=== PATIENT | male | born 1955 | race Caucasian/White ===

== ENCOUNTER 2020-05-31 14:05 | Outpatient (REF) | payer OTHER, SELFPAY | END 2020-05-31 14:06 | disposition home or self-care (01) | LOC: HO.LAB 14:05 | PROVIDERS: PCP Internal Medicine; Visit Provider Internal Medicine | DX: Z20.828 Contact with and (suspected) exposure to other viral communicable diseases (principal) | CPT/HCPCS: C9803; U0003 ==

== ENCOUNTER 2020-12-06 06:36 | Emergency (ER) | payer OTHER, SELFPAY ==
--- NOTE | ~2020-12-06 | XR_ITS ---
EXAMINATION: XR SHOULDER, RIGHT CLINICAL INFORMATION: Pain COMPARISON: None TECHNIQUE: AP external rotation, Grashey, scapular Y, and axillary views of the right shoulder. FINDINGS: Bones have normal alignment. No fracture or subluxation. The acromion process has curved, type 2 configuration. Small osteophytes project from the inferior aspect of the mildly degenerated acromioclavicular joint. The humeral head is well-positioned over the intact glenoid. There are osteophytes at the inferior aspect of the degenerated glenohumeral joint. Note that is difficult to exclude any osteochondral body or calcium hydroxyapatite deposition in the region of the proximal bicipital groove. XR/XR shoulder RT min 2V IMPRESSION: * No acute abnormalities. No fracture or subluxation at the shoulder. * Mild osteoarthritis of the acromioclavicular joint. * [id number] osteoarthritis of the glenohumeral joint.
[2020-12-06 07:17] VITALS: BP 141/83; PULSE 51; RESP 16; O2SAT 98; BMI 35.9
--- NOTE | 2020-12-06 07:45 | ED_ITS ---
HPI - Extremity Problem General Chief complaint: Extremity Injury, Upper Stated complaint: extreme pain in right arm, from elbow up Time Seen by Provider: 12/06/20 07:35 Source: patient and interpreter for the deaf Mode of arrival: ambulatory Limitations: no limitations History of Present Illness HPI Narrative: 65 yo male with HTN here with atraumatic R shoulder pain x 2 days radiating down R arm, no prior injuries. MD Complaint: extremity pain Onset (ago): day(s) (2) Pain Consistency: constant Location: right and upper extremity Quality: burning Radiation: distal Relieving factors: nothing Exacerbating factors: range of motion and palpation Associated symptoms: denies other symptoms Related Data Previous Rx's Medication Instructions Recorded cyclobenzaprine 10 mg PO TID PRN #14 tab 12/06/20 ibuprofen 600 mg PO Q6H PRN #30 tab 12/06/20 lidocaine 1 patch TOPICAL DAILY PRN #10 ea 12/06/20 Allergies Allergy/AdvReac Type Severity Reaction Status Date / Time No Known Allergies Allergy Mild NKA Unverified 03/09/20 16:12 Review of Systems Review of Systems: Constitutional : No Fever, No Chills ENT/Mouth : No Ear Pain, No Hoarseness, No sore throat Eyes: No Eye Pain, No Swelling, No Redness, No Foreign Body Cardiovascular : No Chest Pain, No SOB Respiratory : No Cough, No Dyspnea Gastrointestinal : No Nausea, No Vomiting, No Diarrhea, No abdominal Pain Genitourinary : No Dysuria, No Hematuria Musculoskeletal : positive joint pain, pos Myalgias, No Joint Swelling Skin : No Skin lacerations, No rash Neuro : No Weakness, No Numbness, No Loss of Consciousness, No Dizziness, No Headache PMFSH Past Medical History Attestation statement: The following information was validated with the patient. Medical History Hypercholesteremia Hypertension Surgical History History of cholecystectomy Social History Social History (Updated 12/06/20 @ 08:00 by Keysha Roman DO) Patient Tobacco Use Status: Never used Tobacco Use of substances other than those prescribed or required for medical reasons: No Advance Directives: No Advance Directives Information Provided: No Physical Exam Vital Signs: Vital Signs: Last Vital Signs Temp 98.1 F 12/06/20 08:25 Pulse 56 12/06/20 08:25 Resp 16 12/06/20 08:25 BP 144/89 H 12/06/20 08:25 Pulse Ox 96 12/06/20 08:25 Body Mass Index 35.9 Appearance: Alert. Oriented X3. No acute distress. Eyes: Pupils equal, round and reactive to light. ENT: Pharynx normal. Neck: Normal inspection. Neck supple. CVS: Normal heart rate and rhythm. Pulses normal. Respiratory: No respiratory distress. Breath sounds normal. Abdomen: Soft and nontender. Skin: Skin warm and dry. Normal skin color. Normal skin turgor. Extremities: No lower extremity edema. R shoulder ttp along AC joint, distal NV intact, no deformity redness/swelling/warmth noted Neuro: Oriented X 3. No motor deficit. No sensory deficit. Procedures Orthopedic Splinting/Casting Injury #1: Side: right Upper Extremity Injury Location: shoulder Upper Extremity Immobilizer: sling/shoulder immobilizer MDM - Extremity (Nontraumatic) MDM Narrative Medical decision making narrative: 65 yo male with HTN here with atraumatic R shoulder pain x 2 days radiating down R arm, no prior injuries at this time given no trauma, no signs of infection< NV intact likely tendonitis, xray sling and toradol ordered, no CP/SOB Discharge Plan Discharge Clinical Impression: Right shoulder tendinitis Patient Disposition: Home, Self-Care Instructions: Tendinitis (ED) Additional Instructions: SLING FOR ESTELLA RANDALL * No acute abnormalities. No fracture or subluxation at the shoulder. * Mild osteoarthritis of the acromioclavicular joint. * [id number] osteoarthritis of the glenohumeral joint. Prescriptions: New cyclobenzaprine 10 mg tablet 10 mg PO TID PRN (Reason: muscle spasm) Qty: 14 RF: 0 lidocaine 4 % adhesive patch,medicated 1 patch topical DAILY PRN (Reason: pain) Qty: 10 RF: 0 ibuprofen 600 mg tablet 600 mg PO Q6H PRN (Reason: pain) Qty: 30 RF: 0 Referrals: Angela Zamudio MD [Primary Care Provider] - 2 days (if not better) Print Language: Citizen Of [place]
[2020-12-06] MEDS: Ketorolac Tromethamine 60 MG/2 ML VIAL IM (07:59)
[2020-12-06 08:25] VITALS: BP 144/89; PULSE 56; RESP 16; TEMP 36.7; O2SAT 96
== END 2020-12-06 09:21 | disposition home or self-care (01) ==
PROVIDERS: Emergency Provider Emergency Medicine; PCP Internal Medicine
DX: M77.8 Other enthesopathies, not elsewhere classified (principal); I10 Essential (primary) hypertension
CPT/HCPCS: 73030; 96372; 99284; J1885

== ENCOUNTER 2020-12-08 02:54 | Emergency (ER) | payer OTHER, SELFPAY ==
[2020-12-08 03:04] VITALS: BP 159/91; PULSE 69; RESP 18; TEMP 36.1; O2SAT 97; BMI 21.5
--- NOTE | 2020-12-08 03:51 | ED_ITS ---
HPI - Extremity Problem General Chief complaint: Extremity Injury, Upper Stated complaint: right shoulder/arm pain Time Seen by Provider: 12/08/20 03:51 Source: patient Mode of arrival: ambulatory History of Present Illness HPI Narrative: This is a 65-year-old male who presents with persistent right shoulder pain that started approximately 4 days ago upon awakening from sleep. This is not been associated with any fevers, chills, distal extremity numbness/tingling/weakness. On further questioning patient endorses that he did move his furniture approximately 10 days ago which involved couch is and larger pieces. Related Data Previous Rx's Medication Instructions Recorded cyclobenzaprine 10 mg PO TID PRN #14 tab 12/06/20 ibuprofen 600 mg PO Q6H PRN #30 tab 12/06/20 lidocaine 1 patch TOPICAL DAILY PRN #10 ea 12/06/20 ketorolac 10 mg PO Q6H PRN 5 Days #20 tab 12/08/20 Allergies Allergy/AdvReac Type Severity Reaction Status Date / Time No Known Allergies Allergy Mild NKA Unverified 03/09/20 16:12 Review of Systems Review of Systems: Pertinent positives and negatives as stated in HPI 10 point review of systems is otherwise negative. PMFSH Past Medical History Source: nursing notes reviewed Medical History Hypercholesteremia Hypertension Surgical History History of cholecystectomy Social History Social History Patient Tobacco Use Status: Never used Tobacco Advance Directives: No Advance Directives Information Provided: No Physical Exam Vital Signs: Vital Signs: Last Vital Signs Temp 97.0 F 12/08/20 03:04 Pulse 69 12/08/20 03:04 Resp 18 12/08/20 03:04 BP 159/91 H 12/08/20 03:04 Pulse Ox 97 12/08/20 03:04 Body Mass Index 21.5 VITAL SIGNS: Reviewed. GENERAL: Well developed, well nourished, in no acute distress. HEAD: Normocephalic/atraumatic EYES: PERRLA, EOMI EARS: Ext canals without abnormality NOSE: Nares patent bilateral OROPHARYNX: no oral lesions noted, posterior pharynx clear NECK: Supple, no adenopathy LUNGS: Normal breath sounds. No adventitious sounds or accessory muscle use. SpO2<97> CARDIOVASCULAR: Regular rate and rhythm without noted murmurs ABDOMEN: Soft, non-tender, non-distended with bowel sounds. RUE: Range of motion was limited by pain in extension, flexion, ABduction, capillary refill less than 3 seconds, sensation intact, NEUROLOGIC: Alert and oriented x 4. Course Course Course Narrative: 65-year-old male with history and clinical presentation consistent suggestive of possible rotator cuff injury, patient was provided with additional combination analgesics and on re-evaluation is noted to be resting comfortably. Patient will be provided with a referral to Orthopedics for further re-evaluation. Discharge Plan Discharge Clinical Impression: Pain in right shoulder Patient Disposition: Home, Self-Care Instructions: Shoulder Pain (ED) Additional Instructions: 1. Tylenol 1000 mg, por v?a oral, cada 6 horas seg?n sea necesario para controlar el dolor. No exceda los 4000 mg en 24 horas. 2. DEJE de cherelle ibuprofeno. 3. Contin?e usando los parches de lidoca?na y el cabestrillo que le proporcion?. 4. Kala un seguimiento con parsons proveedor de atenci?n primaria en los pr?ximos 1-2 d?as para paco reevaluaci?n. 5. Se le castellanos remitido a [employer]. [place] se encuentra a continuaci?n. Regrese a la mendel de emergencias por cualquier empeoramiento jeramie de kika s?ntomas. Prescriptions: New ketorolac 10 mg tablet 10 mg PO Q6H PRN (Reason: pain) 5 Days Qty: 20 RF: 0 No Action cyclobenzaprine 10 mg tablet 10 mg PO TID PRN (Reason: muscle spasm) Qty: 14 RF: 0 lidocaine 4 % adhesive patch,medicated 1 patch topical DAILY PRN (Reason: pain) Qty: 10 RF: 0 ibuprofen 600 mg tablet 600 mg PO Q6H PRN (Reason: pain) Qty: 30 RF: 0 Referrals: Issac Jackson MD [Physician] - 2 days (Evaluation and treatment as indicated for possible rotator cuff tear versus tendinitis.)
[2020-12-08] MEDS: Acetaminophen 325 MG TABLET 975 MG PO (04:36)
[2020-12-08] MEDS: Ketorolac Tromethamine 15 MG/ML VIAL IM (04:36)
== END 2020-12-08 06:06 | disposition home or self-care (01) ==
PROVIDERS: Emergency Provider Student in an Organized Health Care Education/Training Program
DX: M25.511 Pain in right shoulder (principal); I10 Essential (primary) hypertension
CPT/HCPCS: 96372; 99283; 99284; J1885

== ENCOUNTER 2021-04-06 10:53 | Outpatient (REF) | payer OTHER, SELFPAY ==
[2021-04-06 11:23] LABS: COVID-19 Test Negative (Negative)
== END 2021-04-06 10:54 | disposition home or self-care (01) ==
LOC: HO.LAB 10:53
PROVIDERS: PCP Internal Medicine; Visit Provider Internal Medicine
DX: Z20.822 Contact with and (suspected) exposure to COVID-19 (principal)
CPT/HCPCS: 36415; 87635; C9803

== ENCOUNTER 2021-05-19 19:27 | Emergency (ER) | payer OTHER, SELFPAY ==
[2021-05-19 20:03] LABS: COVID-19 Test Negative (Negative)
[2021-05-19 20:21] VITALS: BP 140/72; PULSE 59; RESP 15; TEMP 36.6; O2SAT 96; BMI 34.8
--- NOTE | 2021-05-19 22:02 | ED.GENADULT ---
HPI - General Adult General Chief complaint: General Medical Stated complaint: body achesrunny nose Time Seen by Provider: 05/19/21 22:02 Source: patient Mode of arrival: ambulatory Limitations: no limitations History of Present Illness HPI narrative: Patient has significant lung issues in the past been coughing for last 3 days fully vaccinated against COVID-19 no other family members sick had low-grade fever body aches dry cough mostly Related Data Previous Rx's Medication Instructions Recorded ibuprofen 600 mg tablet 600 mg PO Q6H PRN #30 tab 12/06/20 lidocaine 4 % topical patch 1 patch TOPICAL DAILY PRN #10 ea 12/06/20 ketorolac 10 mg tablet 10 mg PO Q6H PRN 5 Days #20 tab 12/08/20 azithromycin 250 mg tablet 250 mg PO DAILY 4 Days #4 tab 05/19/21 (Zithromax Z-Beto) codeine 10 mg-guaifenesin 100 mg/5 10 ml PO Q4-6H PRN #237 ml 05/19/21 mL oral liquid Allergies Allergy/AdvReac Type Severity Reaction Status Date / Time No Known Allergies Allergy Mild NKA Verified 05/19/21 20:27 Review of Systems Review of Systems: Yes all other systems are reviewed and are negative PMFSH Past Medical History Medical History Hypercholesteremia Hypertension Surgical History History of cholecystectomy Social History Social History Patient Tobacco Use Status: Never used Tobacco Advance Directives: No Physical Exam Vital Signs: Vital Signs: Last Vital Signs Temp 97.9 F 05/19/21 20:21 Pulse 59 05/19/21 20:21 Resp 15 05/19/21 20:21 BP 140/72 H 05/19/21 20:21 Pulse Ox 96 05/19/21 20:21 Body Mass Index 34.8 Appearance: Alert. Oriented X3. No acute distress. ENT: Pharynx normal. Oral Mucosa moist Neck: Normal inspection. Neck supple. CVS: Normal heart rate and rhythm. Pulses normal. Respiratory: No respiratory distress. Equal air entry bilateral, no wheezing/rales/rhonchi Abdomen: Soft and nontender. Bowel sounds are present, Skin: Skin warm and dry. Normal skin color. Normal skin turgor. Extremities: No lower extremity edema. No calf tenderness Neuro: Oriented X 3. Medical Decision Making Lab Data Lab results reviewed: Yes I reviewed the patient's lab results. Labs: Lab Results 05/19/21 Range/Units 19:45 COVID-19 ([facility]) Negative (Negative) COVID-19 Clin Com See Note Discharge Plan Discharge Clinical Impression: Acute bronchitis Qualifiers: Bronchitis organism: unspecified organism Qualified Code(s): J20.9 - Acute bronchitis, unspecified Patient Disposition: Home, Self-Care Instructions: Acute Bronchitis (ED) Additional Instructions: Drink plenty of fluids Take antibiotics and cough drops as prescribed Follow with PCP if not better Prescriptions: New azithromycin [Zithromax Z-Beto] 250 mg tablet 250 mg PO DAILY 4 Days Qty: 4 RF: 0 codeine-guaifenesin 10-100 mg/5 mL liquid 10 ml PO Q4-6H PRN (Reason: cough) Qty: 237 RF: 0 Discontinued cyclobenzaprine 10 mg tablet 10 mg PO TID PRN (Reason: muscle spasm) Qty: 14 RF: 0 No Action lidocaine 4 % adhesive patch,medicated 1 patch topical DAILY PRN (Reason: pain) Qty: 10 RF: 0 ibuprofen 600 mg tablet 600 mg PO Q6H PRN (Reason: pain) Qty: 30 RF: 0 ketorolac 10 mg tablet 10 mg PO Q6H PRN (Reason: pain) 5 Days Qty: 20 RF: 0 Interventions: ED Discharge Assessment Last Done: 05/19/21 22:20 Discharge Date/Time: 05/19/21 22:20
[2021-05-19] MEDS: Azithromycin 500 MG TABLET PO (22:17)
[2021-05-19] MEDS: Benzonatate 100 MG CAPSULE 200 MG PO (22:17)
== END 2021-05-19 22:20 | disposition home or self-care (01) ==
PROVIDERS: Emergency Provider Internal Medicine; PCP Student in an Organized Health Care Education/Training Program
DX: J20.9 Acute bronchitis, unspecified (principal); I10 Essential (primary) hypertension; Z20.822 Contact with and (suspected) exposure to COVID-19
CPT/HCPCS: 36415; 87635; 99283

== ENCOUNTER 2021-06-29 13:44 | Outpatient (REF) | payer OTHER, SELFPAY ==
[2021-06-29 14:52] LABS: Binax Internal Control QC Valid; Binax Now Covid-19 Ag Negative (Negative)
== END 2021-06-29 13:45 | disposition home or self-care (01) ==
LOC: HO.LAB 13:44
PROVIDERS: Visit Provider Internal Medicine
DX: Z20.822 Contact with and (suspected) exposure to COVID-19 (principal)
CPT/HCPCS: 36415; C9803

== ENCOUNTER → 2021-12-03 12:52 | Outpatient (REF) | payer OTHER, SELFPAY ==
--- NOTE | 2021-12-03 12:56 | ECG_ITS ---
Hook-up date: 2021-12-03 12:08:00 Duration: 23:56:00 Test Indications: PALPITATIONS Medications: 85893 QRS complexes 301 Ventricular ectopics which represent <1 % of total QRS comp. 27 Supraventricular ectopics which represent <1 % of total QRS comp. * Paced QRS complexs which represent % of total QRS comp. VENTRICULAR ECTOPY 299 Isolated 131 Bigeminal Cycles 1 Couplets 0 Runs 0 Beats in Runs * Beats LONGEST at * BPM at :: -- * Beats FASTEST at * BPM at :: -- SUPRAVENTRICULAR ECTOPY 20 Isolated 2 Couplets 1 Runs 3 Beats in Runs 3 Beats LONGEST at 92 BPM at 02:10:57 2021-12-04 3 Beats FASTEST at 92 BPM at 02:10:57 2021-12-04 HEART RATES 34 MIN at 06:40:44 2021-12-04 55 AVG 96 MAX at 16:27:25 2021-12-03 LONGEST RR 2.0480 secs at 13:59:28 2021-12-03 S-T LEVELS Channel 1 - 128 mm at 12:08:00 2021-12-03 - 128 mm at 12:08:00 2021-12-03 Channel 2 - 128 mm at 12:08:00 2021-12-03 - 128 mm at 12:08:00 2021-12-03 Channel 3 - 128 mm at 03:12:71 -- - 128 mm at 03:12:71 Basic rhythm Normal sinus rhythm Frequent Sinus bradycardia , 65% of time HR < 60 bpm No pauses greater than 3 seconds. Occasional Premature ventricular complexes Rare Premature atrial complexes Patient did not report any symptoms in the diary Referred By: Angela Zamudio Overread By: DAVON COHEN MD
== END ==
LOC: HO.CARD 12:52
PROVIDERS: Visit Provider Internal Medicine
DX: R00.2 Palpitations (principal)
CPT/HCPCS: 93225; 93226

== ENCOUNTER 2022-01-07 14:29 | Outpatient (REF) | payer OTHER, SELFPAY ==
[2022-01-07 14:57] LABS: COVID-19 Test Negative (Negative)
== END 2022-01-07 14:30 | disposition home or self-care (01) ==
LOC: HO.LAB 14:29
PROVIDERS: Visit Provider Internal Medicine
DX: Z20.822 Contact with and (suspected) exposure to COVID-19 (principal)
CPT/HCPCS: 87635; C9803

== ENCOUNTER → 2022-04-02 14:46 | Outpatient (BNVA) | payer OTHER, SELFPAY | PROVIDERS: PCP Internal Medicine; Referring Provider Internal Medicine; Visit Provider Nurse Practitioner Family | DX: Z12.11 Encounter for screening for malignant neoplasm of colon (principal) | CPT/HCPCS: 99202 ==

== ENCOUNTER 2022-05-20 09:56 | Emergency (ER) | payer OTHER, SELFPAY | END 2022-05-20 11:13 | disposition left against medical advice (07) | PROVIDERS: Emergency Provider Emergency Medicine; PCP Internal Medicine | DX: M54.2 Cervicalgia (principal) ==

== ENCOUNTER 2022-10-16 10:47 | Outpatient (REF) | payer OTHER, SELFPAY ==
--- NOTE | ~2022-10-16 | XR_ITS ---
EXAMINATION: XR CHEST CLINICAL INFORMATION: Dyspnea on exertion. COMPARISON: Chest 07/18/2017. TECHNIQUE: 2 views of the chest were obtained. FINDINGS: The lungs are fairly well expanded and clear. The heart size and pulmonary vascularity is normal. No gross bony abnormality seen. There is moderate dorsal spine spondylosis. XR/XR chest 2V IMPRESSION: Unremarkable chest exam.
== END 2022-10-16 10:48 | disposition home or self-care (01) ==
LOC: HO.XRAY 10:47
PROVIDERS: PCP Internal Medicine; Visit Provider Internal Medicine
DX: R06.09 Other forms of dyspnea (principal)
CPT/HCPCS: 71046

== ENCOUNTER 2023-08-10 10:27 | Emergency (ER) | payer OTHER, SELFPAY ==
--- NOTE | ~2023-08-10 | XR_ITS ---
EXAMINATION: XR chest 1V CLINICAL INFORMATION: Reason for Exam cough COMPARISON: Cough TECHNIQUE: Single portable frontal view. Tubes and lines: None Lungs and pleura: Both lungs are clear. Heart and mediastinum: The mediastinum is within normal limits.. Bones/soft tissue: Skeletal structures included are normal for patient's age. XR/XR chest 1V IMPRESSION: No radiographic evidence of acute cardiopulmonary disease.
--- NOTE | ~2023-08-10 | XR_ITS ---
EXAMINATION: XR HAND, RIGHT CLINICAL INFORMATION: Injury COMPARISON: None available. TECHNIQUE: PA, lateral, and oblique views of the right hand. FINDINGS: Notable soft tissue swelling second digit. There is a high density metallic foreign body within the soft tissues measuring up to 4 x 1 mm ulnar aspect about the proximal phalanx. No underlying fracture. Joint spaces preserved. XR/XR hand RT 2V IMPRESSION: Soft tissue injury as above with metallic foreign body as above. No underlying fracture.
[2023-08-10 10:43] VITALS: BP 157/75; PULSE 55; RESP 16; TEMP 36.4; O2SAT 98; BMI 36.9
[2023-08-10 11:04] LABS: MANUAL DIFF FLAG NO
[2023-08-10 11:06] LABS: Basophils Percent Auto 0.2 % (0-2); Eosinophils Absolute Auto 0.1 X10*3/uL (0.0-0.4); Hematocrit 41.6 % (42.0-52.0); Hemoglobin 13.9 g/dl (14.0-18.0); Imm Gran Abs Auto 0.02 X10*3/uL (0.00-0.03); Imm Gran Pct Auto 0.4 % (0.0-0.4); Lymphocytes Absolute Auto 2.4 X10*3/uL (1.2-4.9); Lymphocytes Percent Auto 52.4 % (20-40); Mean Corpuscular HGB Conc 33.4 g/dl (31.0-36.0); Mean Corpuscular Hemoglobin 28.5 pg (27.0-33.0); Mean Corpuscular Volume 85.4 fL (80.0-98.0); Mean Platelet Volume 9.7 fL (9.4-12.4); Monocytes Absolute Auto 0.5 X10*3/uL (0.1-1.2); Monocytes Percent Auto 11.1 % (2-11); Neutrophils Absolute Auto 1.5 x10*3/uL (2.0-8.3); Neutrophils Percent Auto 32.9 % (45-73); Platelet Count 175 X10*3/uL (160-400); Red Blood Count 4.87 X10*6/uL (4.60-5.80); Red Cell Distribution Width 12.5 % (11.0-16.0); White Blood Count 4.6 X10*3/uL (4.8-10.8)
[2023-08-10 11:25] LABS: Alanine Aminotransferase 20 U/L (0-40); Albumin Level 4.1 g/dL (3.5-5.0); Alkaline Phosphatase 51 U/L (39-117); Anion Gap 11 (12-20); Aspartate Amino Transferase 19 U/L (5-37); Bilirubin Direct 0.2 mg/dL (0.0-0.5); Bilirubin Total 0.3 mg/dL (0.0-1.0); Blood Urea Nitrogen 17 mg/dL (9-16); Calcium 9.4 mg/dL (8.4-10.2); Carbon Dioxide 26 mmol/L (22-29); Chloride 108 mmol/L (96-108); Creatinine Clr Calc Pharmacy 88.4; Estimated Glomerular Filt Rate > 60; Glucose Random 106 mg/dL (60-115); Potassium 4.2 mmol/L (3.3-5.1); Sodium 141 mmol/L (135-145); Total Protein 7.9 g/dL (6.5-8.0)
[2023-08-10 11:43] LABS: Influenza A PCR NEGATIVE (Negative); Influenza B PCR NEGATIVE (Negative); Resp Syncy Virus RNA Qual PCR NEGATIVE (Negative); SARS COV2 PCR INHOUSE NEGATIVE (Negative)
--- NOTE | 2023-08-10 12:01 | ED_ITS ---
HPI - Fever General Chief Complaint: Fever Stated Complaint: Fever Time Seen by Provider: 08/10/23 11:26 Source: patient Mode of arrival: ambulatory Limitations: no limitations History of Present Illness HPI Narrative: 68 yo male with history of HLD, BPH, HTN here with complaints of 3 days of subjective fevers, chills, congestion, cough. Initially had vomiting x 24 hrs which is now resolved. No diarrhea, abdominal pain, skin rash, chest pain, shortness of breath, urinary symptoms, headache, neck or back pain. NO sick contact or recent travel. Also concerned that he had an injury to his right index finger several days ago. Reports he smashed his finger with a metal pipe. Had a small abrasion initially. Now its painful, swollen and bruised. Related Data Home Medications Medication Instructions Recorded Confirmed simvastatin 40 mg tablet 40 mg PO BEDTIME 04/02/22 08/01/22 tamsulosin 0.4 mg capsule (Flomax) 0.4 mg PO BEDTIME 04/02/22 08/01/22 trazodone 150 mg tablet 150 mg PO BEDTIME PRN Insomnia 04/02/22 08/01/22 Previous Rx's Medication Instructions Recorded ibuprofen 600 mg tablet 600 mg PO Q6H PRN pain #30 tabs 12/06/20 bisacodyl 5 mg tablet,delayed 10 mg (2 x 5 mg) PO ONCE 1 day #2 04/02/22 release (Dulcolax (bisacodyl)) tabs polyethylene glycol 3350 17 238 g PO ONCE #238 grams 04/02/22 gram/dose oral powder (Miralax) cephalexin 500 mg capsule 500 mg PO BID #14 caps 08/10/23 Allergies Allergy/AdvReac Type Severity Reaction Status Date / Time No Known Allergies Allergy Mild NKA Verified 04/02/22 14:52 Review of Systems 2 Review of Systems: Yes all other systems are reviewed and are negative Constitutional: Constitutional: Reports no additional constitutional complaints, Denies body ache(s), Reports chills, Reports fever(s), Denies headache(s) and Denies weakness Eyes: Eyes: Reports no additional eye complaints and Denies change in vision ENT: Reports system reviewed and no additional complaints, except as documented, Denies dizziness, Denies headache(s), Reports nasal congestion, Denies nasal discharge and Denies neck pain Cardiovascular: Cardiovascular: Reports no additional cardiovascular complaints, Denies chest pain, Denies leg edema and Denies dyspnea Respiratory: Respiratory: Reports no additional respiratory complaints, Reports cough and Denies dyspnea Gastrointestinal: Gastrointestinal: Reports no additional gastrointestinal complaints, Denies abdominal pain, Denies diarrhea, Denies nausea and Denies vomiting Genitourinary: Genitourinary: Denies urinary incontinence Musculoskeletal: Musculoskeletal: Reports no additional musculoskeletal complaints, Denies back pain, Reports arthralgias, Reports joint swelling, Reports limited range of motion, Denies neck pain, Denies numbness and Denies tingling Integumentary/Breasts: Skin/Breast: Reports system reviewed and no additional complaints, except as docu and Denies rash Neurologic: Reports system reviewed and no additional complaints, except as documented, Denies Abnormal speech present, Denies dizziness, Denies headache(s), Denies numbness, Denies tingling and Denies weakness PMFSH Past Medical History Attestation statement: The following information was validated with the patient. Source: old records reviewed and nursing notes reviewed Medical History Dorsalgia Sinus bradycardia BPH (benign prostatic hyperplasia) Palpitations Acute dyspnea Hypertension Hypercholesteremia Surgical History History of esophagogastroduodenoscopy (EGD) History of cholecystectomy Social History Social History Alcohol intake: current Patient Tobacco Use Status: Never used Tobacco Smoked in Last 30 Days: No Use of substances other than those prescribed or required for medical reasons: No Advance Directives: No Advance Directives Information Provided: Yes Physical Exam 2 Vital Signs: Vital Signs: Last Vital Signs Temp 97.1 F 08/10/23 12:52 Pulse 54 08/10/23 12:52 Resp 18 08/10/23 12:52 BP 141/84 H 08/10/23 12:52 Pulse Ox 98 08/10/23 12:52 O2 Del Method Room Air 08/10/23 12:52 BMI result Body Mass Index 36.9 Const: General: cooperative, healthy appearing, comfortable and no acute distress Orientation/consciousness: patient oriented x3 Limitations: no limitations HEENT: Head: Yes normal to inspection Ears: hearing grossly normal bilaterally and TM's normal bilaterally General nose exam: Normal external nose present Face and sinus: Yes normal facial exam Mouth: Normal oral and palatal mucosa present Throat: Yes posterior oropharynx normal, Yes tonsils normal and Yes uvula midline Eyes: General: appearance normal, both eyes and all related structures P upils: Equal, round and reactive pupils present Neck: Neck: Yes normal visual inspection, Yes full ROM, Yes no lymphadenopathy and Yes no meningeal signs Chest: Chest palpation & inspection: normal inspection of the chest Resp: Effort & Inspection: normal respiratory effort Auscultation: clear to auscultation bilaterally Cardio: Rate: regular rate Rhythm: regular rhythm Peripheral pulses: P eripheral pulses 2+ throughout GI: Inspection: Yes normal to inspection Palpation (GI): Soft to palpation and nontender Auscultation: normal bowel sounds Back/Spine/Pelvis: Thoracic/Lumbar Spine: thoracic and lumbar spine normal to inspection Skin: General skin exam: no rashes or lesions noted Neuro: General: patient oriented x3, no meningeal signs, no focal motor deficits and normal sensation to monofilament Cranial nerves: Yes Equal, round and reactive pupils present Cognition (Neuro): normal cognition S peech: No Abnormal speech present Gait exam (Neuro): Normal gait present M otor exam (neuro): 5/5 motor strength present throughout Extrem: General: Yes normal to inspection, Yes no pedal edema and Yes no calf tenderness Hand/finger images: 1. +healed abrasion No redness/purulence or warmth noted There is ecchymosis and swelling which is circumferential at the base of the digit with limited flexion d/t pain Course Course Course Narrative: viral testing is negative. Chest x-ray shows no signs of pneumonia. Urine testing is negative. Lab work is reassuring. Likely viral syndrome. Recommend supportive care at home. Patient nontoxic, afebrile, not hypoxic or tachypneic or requiring supplemental oxygen. X-ray of hand shows no acute bony abnormality but there is a retained metallic foreign body. Patient had a tetanus shot updated while he was here in the emergency room. I do not appreciate any active signs of infections at this time. He does have limited range of motion which may be secondary to swelling but also may be secondary to a underlying tendon or ligament injury. Therefore I will place him in a finger splint. I will treat him with prophylactic antibiotics are for him to follow-up with hand surgery Medical Decision Making Medical Decision Making [facility] Narrative: 68 yo male with history of HLD, BPH, HTN here with complaints of 3 days of subjective fevers, chills, congestion, cough. Initially had vomiting x 24 hrs which is now resolved. No diarrhea, abdominal pain, skin rash, chest pain, shortness of breath, urinary symptoms, headache, neck or back pain. NO sick contact or recent travel. Also concerned that he had an injury to his right index finger several days ago. Reports he smashed his finger with a metal pipe. Had a small abrasion initially. Now its painful, swollen and bruised. No focal finding on exam (See note about digit). VSS Will send viral testing, obtain labs, CXR, UA For digit there is no signs of infection but d/t history of trauma with limited ROM will check x-rays Differential Diagnosis Differential Diagnoses: The differential diagnosis associated with the presentation includes viral syndrome, uti, influenza, pna no findings to suggest acute abdomen, meningitis/encephalitis, cellulitis, RPA/[employer]/strep Admission/Observation Consideration of admission/observation: Escalation of care including admission/observation considered see discussion in course Lab Data [facility] Lab Attestation statement: I reviewed the patient's lab results. 08/10/23 11:01 08/10/23 11:01 Labs: Lab Results 08/10/23 08/10/23 Range/Units 11:01 12:01 WBC 4.6 L (4.8-10.8) X10*3/uL RBC 4.87 (4.60-5.80) X10*6/uL Hgb 13.9 L (14.0-18.0) g/dl Hct 41.6 L (42.0-52.0) % MCV 85.4 (80.0-98.0) fL MCH 28.5 (27.0-33.0) pg MCHC 33.4 (31.0-36.0) g/dl RDW 12.5 (11.0-16.0) % Plt Count 175 (160-400) X10*3/uL MPV 9.7 (9.4-12.4) fL Immature Gran % (Auto) 0.4 (0.0-0.4) % Neut % (Auto) 32.9 L (45-73) % Lymph % (Auto) 52.4 H (20-40) % [place] % (Auto) 11.1 H (2-11) % Eos % (Auto) 3.0 (0-4) % Baso % (Auto) 0.2 (0-2) % Lymph # (Auto) 2.4 (1.2-4.9) X10*3/uL [place] # (Auto) 0.5 (0.1-1.2) X10*3/uL Eos # (Auto) 0.1 (0.0-0.4) X10*3/uL Baso # (Auto) 0.0 (0.0-0.2) X10*3/uL Abs Immat Gran (auto) 0.02 (0.00-0.03) X10*3/uL Absolute Neuts (auto) 1.5 L (2.0-8.3) x10*3/uL Absolute Nucleated RBC 0.000 (0.0-0.012) X10*3/uL Nucleated RBC % (auto) 0.0 (0.0-0.2) /100WBC Sodium 141 (135-145) mmol/L Potassium 4.2 (3.3-5.1) mmol/L Chloride 108 (96-108) mmol/L Carbon Dioxide 26 (22-29) mmol/L Anion Gap 11 L (12-20) BUN 17 H (9-16) mg/dL Creatinine 1.02 (0.5-1.4) mg/dL Estim Creat Clear Calc 88.4 Estimated GFR > 60 Random Glucose 106 (60-115) mg/dL Calcium 9.4 (8.4-10.2) mg/dL Total Bilirubin 0.3 (0.0-1.0) mg/dL Direct Bilirubin 0.2 (0.0-0.5) mg/dL AST 19 (5-37) U/L ALT 20 (0-40) U/L Alkaline Phosphatase 51 (39-117) U/L Total Protein 7.9 (6.5-8.0) g/dL Albumin 4.1 (3.5-5.0) g/dL Urine Color Yellow Urine Appearance Clear Urine pH 5.5 (5.0-9.0) Ur Specific [place] 1.025 (1.005-1.025) Urine Protein 30 (1+) H (Neg-Trace) mg/dL Urine Glucose (UA) Negative (Negative) mg/dL Urine Ketones Negative (Negative) mg/dL Urine Blood Negative (Negative) Urine Nitrite Negative (Negative) Ur Leukocyte Esterase Negative (Negative) Urine RBC 0-2 (0-2) /HPF Urine WBC 0-5 (0-5) /HPF Ur Squamous Epith Cells 0-2 (0-2) /HPF Urine Bacteria None Seen (None Seen) Hyaline Casts 0-2 (0-2) /LPF Influenza Type A (PCR) NEGATIVE (Negative) Influenza Type B (PCR) NEGATIVE (Negative) RSV RNA Qual (PCR) NEGATIVE (Negative) SARS-CoV-2 RNA (RT-PCR) NEGATIVE (Negative) Independent Interpretation I performed an independent interpretation of an: Plain X-Ray Interpretation: I independently reviewed the x-ray and agree with the radiology report Radiology Impression Discussion of test interpretation with radiology: I have reviewed the radiologist's reading. Radiologist Impression: [place] [id number] XRay Report Signed Patient: Nando Guadalupe MR#: [id number] : 1955 Acct:[id number] Age/Sex: 68 / M ADM Date: 08/10/23 Loc: .ED Attending Dr: Ordering Physician: Azar Shipman MD Date of Service: 08/10/23 Procedure(s): XR chest 1V Accession Number(s): [id number] cc: Angela Zamudio MD; Azar Shipman MD~ EXAMINATION: XR chest 1V CLINICAL INFORMATION: Reason for Exam cough COMPARISON: Cough TECHNIQUE: Single portable frontal view. Tubes and lines: None Lungs and pleura: Both lungs are clear. Heart and mediastinum: The mediastinum is within normal limits.. Bones/soft tissue: Skeletal structures included are normal for patient's age. XR/XR chest 1V IMPRESSION: No radiographic evidence of acute cardiopulmonary disease. Prescription Management I considered prescription management with: Antibiotic Discharge Plan Discharge Clinical Impression: Viral infection, Retained foreign body of finger Patient Disposition: Home, Self-Care Instructions: Soft Tissue Foreign Body (ED), Viral Syndrome (ED) Additional Instructions: your blood work is reassuring. Your testing for flu and COVID are negative. Your chest x-ray shows no signs of infection. Urine shows no signs of infection take Motrin or Tylenol if able as needed for pain or fever Increase fluids, rest your x-ray of your finger does not show any fracture. However you do have a small piece of metal which is left underneath the tissue. I am also concerned that you may have an underlying ligament or tendon injury as your unable to bend the finger. Therefore I a.m. referring you to see a hand doctor to have this evaluated further. You did receive a tetanus shot while you are here in the emergency room. We are putting him on prophylactic antibiotics. Use the splint for comfort Prescriptions: New cephalexin 500 mg capsule 500 mg PO BID Qty: 14 0RF No Action ibuprofen 600 mg tablet 600 mg PO Q6H PRN (Reason: pain) Qty: 30 0RF trazodone 150 mg tablet 150 mg PO BEDTIME PRN (Reason: Insomnia) tamsulosin [Flomax] 0.4 mg capsule 0.4 mg PO BEDTIME simvastatin 40 mg tablet 40 mg PO BEDTIME bisacodyl [Dulcolax (bisacodyl)] 5 mg tablet,delayed release (DR/EC) 10 mg PO ONCE 1 Days Qty: 2 0RF Rx Instructions: take 2 tabs at noon the day before your colonoscopy polyethylene glycol 3350 [Miralax] 17 gram/dose powder 238 g PO ONCE Qty: 238 0RF Rx Instructions: As directed by gastroenterology department at [facility] Referrals: Angela Zamudio MD [Primary Care Provider] - 1 week [facility] [Provider Group] - 1 week
[2023-08-10 12:12] LABS: Appearance Urine Clear; Color Urine Yellow; Glucose Urine UA Negative (Negative); Leukocyte Esterase Urine Negative (Negative); Nitrite Urine Negative (Negative); PH 5.5 (5.0-9.0); Specific Gravity - Urine 1.025 (1.005-1.025); UMIC TRIGGER UACC YES; Urine Blood Negative (Negative); Urine Ketones Negative (Negative); Urine Protein 30 (1+) mg/dL (Neg-Trace)
[2023-08-10 12:15] LABS: Bacteria Urine None Seen (None Seen); Hyaline Casts Urine 0-2 /LPF (0-2); RBC Urine 0-2 /HPF (0-2); Squamous Epithelial Cell Urine 0-2 /HPF (0-2); WBC Urine 0-5 /HPF (0-5)
[2023-08-10 12:52] VITALS: BP 141/84; PULSE 54; RESP 18; TEMP 36.2; O2SAT 98
[2023-08-10] MEDS: Diphth,Pertus(ACell),Tet Adult 0.5 ML SYRINGE IM (14:26)
--- NOTE | 2023-08-10 14:34 | MHC.EDTECH ---
splint applied to pts right pointer finger by this tech
== END 2023-08-10 14:35 | disposition home or self-care (01) ==
PROVIDERS: Nurse Practitioner Family; Emergency Provider Emergency Medicine; PCP Internal Medicine
DX: B34.9 Viral infection, unspecified (principal); M60.241 Foreign body granuloma of soft tissue, not elsewhere classified, right hand; R50.9 Fever, unspecified; R05.9 Cough, unspecified; R11.2 Nausea with vomiting, unspecified; M54.2 Cervicalgia; M54.50 Low back pain, unspecified; Z20.822 Contact with and (suspected) exposure to COVID-19; Z11.52 Encounter for screening for COVID-19; Z79.899 Other long term (current) drug therapy
CPT/HCPCS: 0241U; 10120; 71045; 73120; 80048; 80076; 81001; 85025; 90471; 90715; 99284

== ENCOUNTER 2023-08-19 13:54 | Outpatient (AMB) | payer OTHER, SELFPAY ==
[2023-08-19 14:02] VITALS: BMI 36.9
--- NOTE | 2023-08-19 14:02 | A.OFFVIS_ITS ---
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 States he smashed his finger with a metal pipe, causing a small laceration over the dorsal aspect of the index finger at the proximal phalanx. Seen in ED where xrays were done and ref to orthopedics for further evaluation for ligament or tendon injury due to he is unable to bend his finger and for foreign body found on radiographs.. 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 He is seen today with his son, who is acting as a inside outside sales representative. He reportedly struck his finger with a metal pipe ~6 weeks ago. He says he had a small cut, which he cleaned and applied Abx ointment. He was seen in the ED on 08/10/23 for a fever and finger pain/limited ROM. There was no evidence of infec tion found but he was given a course of Abx. Radiographs found a retained metallic foreign body in his index finger. He was fitted for a finger splint to wear with daily activity and referred here with concerns of possible tendon/ligament injury. His Tetanus shot was updated in the ED. He complains today of right index finger foreign body with tenderness and a small bump.. PFS Medical History Dorsalgia Sinus bradycardia BPH (benign prostatic hyperplasia) Palpitations Acute dyspnea Hypertension Hypercholesteremia Surgical History History of esophagogastroduodenoscopy (EGD) History of cholecystectomy Social History (Updated 08/19/23 @ 14:23 by HOLA Maravilla) Alcohol intake: current Patient Tobacco Use Status: Never used Tobacco Current occupational status: disabled Current occupation: rt hand Review of Systems Const All systems reviewed & are unremarkable except as noted in HPI and below Physical Exam Vital Signs: BMI result Body Mass Index 36.9 Const General: cooperative, healthy appearing and no acute distress Orientation/consciousness: patient oriented x3 HEENT Head: Yes normocephalic and Yes atraumatic Eyes EOM: EOMs intact bilaterally Resp Effort & Inspection: normal respiratory effort and able to speak in complete sentences Cardio Jugular venous distension: no JVD Skin General skin exam: turgor normal Rashes: no rashes Neuro General: patient oriented x3 Extrem Other: Evaluation of Right Upper Extremity: The patient is alert, oriented, and in no acute distress Neuro: Median, Ulnar, Radial nerves motor and sensory intact and sensation is normal to the tips of all digits Vascular: Cap refill brisk ROM: He was seen today wearing a finger splint With encouragement he could make a fist and extend all his digits He could hold his index finger extended against resistance Good FDP & FDS tendon function with strength and no pain Index finger PIP joint stable on exam Skin: There is a healed laceration over the dorsal ulnar aspect of the index finger There is a palpable mass measuring ~8mm in diameter, in the area of the dorsal ulnar aspect of the proximal phalanx, proximal to PIP joint. This is consistent with the location of the metallic foreign body on radiographs. This is mildly tender General: No Ecchymosis or erythema. Mild index finger swelling in area of tenderness Mildly tender Radiographs: 3 views of the right hand from 08/10/23 were reviewed by me today in clinic. They show no fractures or dislocations. There appears to be a metallic foreign body, or possibly pencil lead, radial to the index finger proximal phalanx at about the neck of the proximal phalanx. Psych Appearance: grossly normal Affect: normal affect Attitude: cooperative Assessment & Plan Assessment & Plan (1) Foreign body of right index finger: Code(s): S60.450A - Superficial foreign body of right index finger, initial encounter Plan Assessment & Plan: 1. Right index finger retained metallic foreign body From an injury in mid-June 2023 Measuring ~8mm in diameter,over the dorsal ulnar aspect of the proximal phalanx I educated him and his son about this condition I discussed operative and non-operative treatment options The patient would like to proceed with surgery The risks and benefits of operative treatment were discussed with the patient and the patient wishes to proceed with surgery. These risks include, but are not limited to risk of damage to blood vessels, nerves, tendons, infection, recurrence, incomplete relief of preoperative symptoms, persistent pain, possible need for further surgery and the risks associated with regional blocks and anesthesia. The plan is to take the patient to the operating room sometime on 08/25/23 for the following procedures: 1. Right index finger removal of foreign body, under local All of the preoperative paperwork including the consent was reviewed today. All the patient's questions were answered. The patient understands that they will be contacted by our dental surgery doctor soon to schedule this procedure He denies Diabetes, blood thinners, asthma, heart, lung, kidney issues Scribed for Magy Gautam MD by Freddy Person, senior medical transcriptionist, on 08/19/23 at 2:35 PM, EST. Coding Level of Care Code New Pt Level 4 (97968) Diagnoses Foreign body of right index finger S60.450A
== END 2023-08-19 14:42 | disposition home or self-care (01) ==
PROVIDERS: PCP Internal Medicine; Visit Provider Orthopaedic Surgery
DX: S60.450A Superficial foreign body of right index finger, initial encounter (principal)
CPT/HCPCS: 99204

== ENCOUNTER → 2023-08-19 13:54 | Outpatient (BNVA) | payer OTHER, SELFPAY | PROVIDERS: PCP Internal Medicine; Visit Provider Orthopaedic Surgery | DX: S60.450A Superficial foreign body of right index finger, initial encounter (principal) | CPT/HCPCS: 99202 ==

== ENCOUNTER 2023-08-25 11:15 | Day surgery (SDC) | payer OTHER, SELFPAY ==
--- NOTE | ~2023-08-25 | FL_ITS ---
EXAMINATION: XR FLUOROSCOPY WITH IMAGES CLINICAL INFORMATION: Foreign body removal, right index finger. COMPARISON: Radiographs dated 08/10/2023. TECHNIQUE: Fluoroscopy Supervised By: Dr. Magy Gautam. Fluoroscopy Time: 6.11 seconds. Cumulative Dose: 0.1143 mGy. DAP: 0.0069 Gycm2. Images: 2. FINDINGS: The submitted images are frontal and lateral views of the right index finger. The previously noted radiopaque foreign body is not redemonstrated on these images. FL/FL guidance in OR IMPRESSION: Proper fluoroscopic guidance is provided during right index finger foreign body removal. Please see the patient's Operative Report for full procedural details.
--- NOTE | 2023-08-25 12:50 | W.PM.OPN ---
Operative Note Operative Note Date of Service: 08/25/23 Narrative: Operative Note Preop diagnosis: 1. Right index finger foreign body Postop diagnosis: same Procedure: 1. Right index finger foreign body removal Surgeon: Magy Gautam MD Anesthesia: digital block using 1% lidocaine with epinephrine Findings: Small metallic foreign body measuring about 4 mm in length by about 3 mm in width by about 1 mm in thickness was removed from the dorsal ulnar aspect of the right index finger proximal phalanx area. It was in the subcutaneous tissues. EBL: Less than 5 mL Tourniquet time: None Specimens: None Complications: None Disposition: Brought to recovery room in stable condition Plan: Follow-up for 7-10 days for wound check and suture removal and to check pathology Indications: The patient is 68 years old, with right index finger foreign body over the dorsal aspect of the proximal phalanx after being struck with a metal pipe . The risks and benefits of operative treatment including but not limited to risk of damage to blood vessels, nerves, tendons, infection, persistent pain, persistent symptoms, recurrence or possible need for additional surgery were discussed with the patient and the patient wishes to proceed with surgery. Procedure: Once consent was obtained a digital block was performed in the preop area using a combination of 1% lidocaine with epinephrine. The patient was then brought back to the operating suite and placed on the operative table in supine position. The right upper extremity and the limb was prepped and draped in a standard surgical fashion. Once assured that we had a good block, I made a lazy-S incision over the dorsal ulnar aspect of the proximal phalanx of the right index finger just proximal to the PIP joint. Incision was made through the skin the subcutaneous tissues. I then dissected into the subcutaneous tissues using tenotomy scissors. I did not see the foreign body. We then brought in the FluoroScan which helped me to localize the foreign body. It was then removed from the patient. I got final radiographs showing that the metallic foreign body was removed. This point the wound was copiously irrigated with normal saline. Once satisfied with our foreign body removal the wound was copiously irrigated with normal saline and hemostasis was obtained with a brief period of local pressure. The skin edges were reapproximated with some 5.0 nylon suture material and a sterile dressing was applied. The patient appears to have tolerated the procedure well and with no complications. All digits were well vascularized at the conclusion of the case.
[2023-08-25 12:58] VITALS: BP 141/66; PULSE 79; RESP 18; TEMP 36.6; O2SAT 98; BMI 39.4
[2023-08-25 15:25] VITALS: BP 145/77; PULSE 57; RESP 16; O2SAT 98
[2023-08-25 23:05] LABS: HIV AB/AG Nonreactive (Nonreactive); HIV Num 1 0.05 S/CO (0.00-0.99)
[2023-08-26 08:32] LABS: HBS Num1 7.47 mIU/mL (0-7.99); HBsAGNum1 0.42 S/CO (0.00-0.99); Hepatitis B Surface Antigen Negative (Negative); ~HepC Num1 13.98 S/CO (0.00-0.79); ~Hepatitis B Surface Antibody NONREACTIVE (Nonreactive); ~Hepatitis C Antibody Reactive (Nonreactive)
[2023-08-26 10:22] LABS: HBc Num2 6.39 S/CO; HBc Num3 6.58 S/CO; Hepatitis B Core Antibody Reactive (Nonreactive)
[2023-08-27 15:43] LABS: Hepatitis B Core Antibody IgM NON-REACTIVE (NON-REACTIVE)
== END 2023-08-25 15:50 | disposition home or self-care (01) ==
PROVIDERS: PCP Internal Medicine; Visit Provider Orthopaedic Surgery
PROC: (CPT 10120; principal; 2023-08-25 14:20)
DX: S60.450A Superficial foreign body of right index finger, initial encounter (principal); Z18.10 Retained metal fragments, unspecified; M79.89 Other specified soft tissue disorders; W22.8XXA Striking against or struck by other objects, initial encounter; Y93.9 Activity, unspecified; Y92.9 Unspecified place or not applicable; Y99.9 Unspecified external cause status; I10 Essential (primary) hypertension; E78.00 Pure hypercholesterolemia, unspecified; R00.1 Bradycardia, unspecified
CPT/HCPCS: 10120; 36415; 86704; 86705; 86706; 86803; 87340; J0171

== ENCOUNTER → 2023-08-25 11:15 | Outpatient (BNV) | payer OTHER, SELFPAY | PROVIDERS: PCP Internal Medicine; Visit Provider Orthopaedic Surgery | DX: S61.220A Laceration with foreign body of right index finger without damage to nail, initial encounter (principal) | CPT/HCPCS: 26080 ==

== ENCOUNTER 2023-08-29 10:41 | Outpatient (AMB) | payer OTHER, SELFPAY ==
--- NOTE | 2023-08-29 10:52 | A.OFFVIS_ITS ---
Intake Intake Visit Reasons: PO RT IF FOB removal 08/25/23 AR Intake Note: Nando a 68 year old male presents today for a post operative bandage change s/p post operative right IF removal of FOB on 08/25/23. Patient reports arm hanging down he has numbness. Complaints of burning sensation with removing dressing. Allergies No Known Allergies Allergy (Mild, Verified 08/29/23 11:06) NKA HPI PO RT IF FOB removal 08/25/23 AR HPI Details 68-year-old female who returns to the [facility] today for post-op bandage change s/p right index finger FOB removal, 08/25/[address] Gautam. He states he has numbness in his arm with freely hanging his right hand. He also reports he had a burning sensation with removing the dressing. He is doing well overall and has no concerns today. [facility] Medical History Dorsalgia Sinus bradycardia BPH (benign prostatic hyperplasia) Palpitations Acute dyspnea Hypertension Hypercholesteremia Surgical History History of esophagogastroduodenoscopy (EGD) History of cholecystectomy Social History Alcohol intake: current Comment: counts correct Patient Tobacco Use Status: Never used Tobacco Current occupational status: disabled Current occupation: rt hand Review of Systems Const All systems reviewed & are unremarkable except as noted in HPI and below Physical Exam Extrem Other: Right index finger: Incision clean, dry and intact. No erythema or drainage. He can bend his MCP to 90 and PIP to 90 degrees. NVI. Assessment & Plan Assessment & Plan (1) Foreign body of right index finger: Code(s): S60.450A - Superficial foreign body of right index finger, initial encounter Plan The incision was cleaned and a new dry dressing was applied in the office today. He will keep this on until her post-op appointment in 7-[address] Gautam. Patient Instructions: Scribed for Mary Wesley PA-C, by Jonathan Rowe medical social worker, on 08/29/2023 at 11:00 AM DEVAN. IMary PA-C, have personally reviewed and agree with the information entered by the scribe. Coding Level of Care Code Global (98261) Diagnoses Foreign body of right index finger S60.450A
== END 2023-08-29 12:22 | disposition home or self-care (01) ==
LOC: HO.HOS 10:42
PROVIDERS: PCP Internal Medicine; Visit Provider Physician Assistant
DX: S60.450A Superficial foreign body of right index finger, initial encounter (principal)
CPT/HCPCS: 99024

== ENCOUNTER → 2023-08-29 10:41 | Outpatient (BNVA) | payer OTHER, SELFPAY | PROVIDERS: PCP Internal Medicine; Visit Provider Physician Assistant | DX: Z48.1 Encounter for planned postprocedural wound closure (principal); S60.450D Superficial foreign body of right index finger, subsequent encounter | CPT/HCPCS: 99212 ==

== ENCOUNTER 2023-09-09 11:09 | Outpatient (AMB) | payer OTHER, SELFPAY ==
[2023-09-09 11:24] VITALS: BMI 39.4
--- NOTE | 2023-09-09 11:24 | MHC.OFFVIS ---
Intake Vital Signs 09/09/23 11:24 Height 5 ft 9 in Weight 267 lb BMI 39.4 Intake Visit Reasons: PO RT IF FOB removal 08/25/23 AR Intake Note: Nando a 68 year old male presents today for a post operative visit for his right IF removal of FOB on 08/25/23. States he little pain when bending his finger but is doing well overall. Allergies No Known Allergies Allergy (Mild, Verified 09/09/23 11:27) NKA HPI PO RT IF FOB removal 08/25/23 AR HPI Details Nando is a 68 year old right hand dominant man who presents S/P right index finger foreign body removal, DOS: 08/25/23. He says he is doing well overall. He has some pain when bending his index finger, but says this is tolerable. He denies any numbness or tingling, and is happy with the results of his surgery. He says he was successfully treated for Hepatitis C in ~2008. I had a blood exposure during this case due to a hole in my glove and the exposure of his blood to my hang nail. He did test positive for hepatitis-C antibodies. I had called and made him aware of the hepatitis-C antibodies. He is checking in with gastroenterology. [facility] Medical History Dorsalgia Sinus bradycardia BPH (benign prostatic hyperplasia) Palpitations Acute dyspnea Hypertension Hypercholesteremia Surgical History (Reviewed 08/29/23 @ 11:08 by Mariana Quevedo COUNTS INCLUDE 234 BEDS AT THE [facility]) History of esophagogastroduodenoscopy (EGD) History of cholecystectomy Social History Alcohol intake: current Comment: counts correct Patient Tobacco Use Status: Never used Tobacco Current occupational status: disabled Current occupation: rt hand Review of Systems Const All systems reviewed & are unremarkable except as noted in HPI and below Physical Exam Vital Signs: BMI result Body Mass Index 39.4 Const General: no acute distress and alert Orientation/consciousness: patient oriented x3 Neuro General: patient oriented x3 Extrem Other: The patient was alert oriented and in no acute distress The incision is healing well with no erythema drainage or evidence of infection. Sutures removed and Steri-Strips applied He can make a tight fist and extend all his digits. Sensation is intact Cap refill is brisk Psych Appearance: grossly normal Affect: normal affect Attitude: cooperative Assessment & Plan Assessment & Plan (1) Foreign body of right index finger: Code(s): S60.450A - Superficial foreign body of right index finger, initial encounter Plan Assessment & Plan: 1. Right index finger foreign body, S/P removal DOS: 08/25/23 The patient appears to be doing well post-operatively I educated him about the post-operative course I explained the signs and symptoms of infection I discussed activity modifications, he is to lift nothing heavier than a cellphone for the next two weeks He will perform gentle ROM exercises at home He should avoid any underwater activities for the next 5 days He should gently massage about the incision site to reduce the risk of hypersensitivity He can follow up prn Again I had a blood exposure at the time of surgery due to a hole in my glove. My test was negative. He said he will let me know about any findings regarding his hepatitis-C from the gastroenterology visit. Scribed for Magy Gautam MD by Freddy Person, medical center manager, on 09/09/23 at 11:45 AM, EST. Coding Level of Care Code Global (41471) Diagnoses Foreign body of right index finger S60.450A
== END 2023-09-09 11:56 | disposition home or self-care (01) ==
PROVIDERS: PCP Internal Medicine; Visit Provider Orthopaedic Surgery
DX: S60.450A Superficial foreign body of right index finger, initial encounter (principal)
CPT/HCPCS: 99024

== ENCOUNTER → 2023-09-09 11:09 | Outpatient (BNVA) | payer OTHER, SELFPAY | PROVIDERS: PCP Internal Medicine; Visit Provider Orthopaedic Surgery | DX: Z48.02 Encounter for removal of sutures (principal) | CPT/HCPCS: 99212 ==

== ENCOUNTER 2023-09-09 14:49 | Outpatient (REF) | payer OTHER, SELFPAY ==
[2023-09-10 08:07] LABS: ~HepC Num1 14.36 S/CO (0.00-0.79); ~Hepatitis C Antibody Reactive (Nonreactive)
[2023-09-13 07:28] LABS: HCV Log PCR <1.18 NOT DETECTED Log IU/mL (NOT DETECTED); HepC Viral Load <15 NOT DETECTED IU/mL (NOT DETECTED)
== END 2023-09-09 14:50 | disposition home or self-care (01) ==
LOC: HO.CHCLDS 14:49
PROVIDERS: Visit Provider Internal Medicine
DX: B18.2 Chronic viral hepatitis C (principal)
CPT/HCPCS: 36415; 86803; 87522

== ENCOUNTER → 2023-09-16 19:30 | Outpatient (BNV) | payer OTHER, SELFPAY | PROVIDERS: PCP Internal Medicine; Visit Provider Internal Medicine | DX: G47.33 Obstructive sleep apnea (adult) (pediatric) (principal) | CPT/HCPCS: 95810 ==

== ENCOUNTER → 2023-09-16 20:30 | Outpatient (REF) | payer OTHER, SELFPAY | LOC: HO.SL 20:30 | PROVIDERS: PCP Internal Medicine; Visit Provider Internal Medicine | DX: I10 Essential (primary) hypertension (principal); E66.9 Obesity, unspecified; R06.83 Snoring; G47.33 Obstructive sleep apnea (adult) (pediatric) | CPT/HCPCS: 95810 ==

== ENCOUNTER 2024-03-24 13:13 | Outpatient (AMB) | payer OTHER, SELFPAY ==
--- NOTE | 2024-03-24 13:22 | A.OFFVIS_ITS ---
Vital Signs 03/24/24 13:23 Height 5 ft 9 in Weight 238 lb 1.588 oz BMI 35.2 BP 137/71 Blood Pressure Location Lt brachial Position Sitting Pulse 58 Intake Visit Reasons: Colonoscopy Screening Intake Note: Nando presents in the office as a new patient colonoscopy screening. CC: He is here today for a screening colonoscopy - no concerns at this time. Management Psychologist Required: Yes Management Psychologist Name: Hussain [id number] Allergies No Known Allergies Allergy (Mild, Verified 03/24/24 13:24) NKA HPI HPI Colonoscopy Screening: Details: LAST VISIT: 04/02/2022 Screen for colon cancer Patient denies any GI, cardiac or respiratory symptoms.? As mentioned above patient was worked up for symptoms of shortness of breath with exertion and chest pain. All the tests were negative for any acute findings. Denies any issues with anesthesia in the past.? Denies any history of sleep apnea.? No history infectious diseases in the past or present.? Not on any anticoagulation therapy.? No family or personal history of colon cancer or polyps.? Patient denies melena, hematochezia, unintentional weight loss or ribbon like stools.? Discussed at length the pre-procedure,? prep, diet & medications as well as what to expect prior, during and after the procedure.?? Stressed the importance of good bowel prep. ?Recommended the use of Vaseline or Calmoseptine OTC & baby wipes with bowel movements to promote comfort.? ?Patient verbalizes understanding and agrees to plan of care.? He was given the opportunity to ask questions and all questions answered.? We will see him after the procedure.? Plan Medications New bisacodyl (Dulcolax (bisacodyl)) take 2 tabs at noon the day before your colonoscopy 10 mg (2 x 5 mg) PO ONCE 1 day 2 tabs 0RF Z12.11 polyethylene glycol 3350 (Miralax) As directed by gastroenterology department at [facility] 238 grams PO ONCE 238 grams 0RF Z12.11 Discontinued lidocaine 4% may leave on for up to 12 hrs Discontinued Reason: Patient no longer taking 1 patch topical DAILY PRN 10 ea 0RF pain ketorolac Patient received IM Toradol in the emergency room. Discontinued Reason: Patient no longer taking 10 mg PO Q6H 5 days PRN 20 tabs 0RF pain azithromycin (Zithromax Z-Beto) start on day 2 of therapy Discontinued Reason: Patient no longer taking 250 mg PO DAILY 4 days 4 tabs 0RF codeine-guaifenesin 10-100 mg/5 mL Discontinued Reason: Patient no longer taking 10 mL PO Q4-6H PRN 237 mL 0RF cough TODAY'S VISIT Patient is here today for follow-up and discuss going for colonoscopy. Patient was seen in 2021 for pre colonoscopy screening and has never gone for colonoscopy. Patient denies any change since last visit. Denies any chest pain or shortness of breath. Denies any GI concerning symptoms. Denies melena, hematochezia, unintentional weight loss or ribbon like stools. Denies dyspepsia, dysphagia or odynophagia. PFSH Medical History Dorsalgia Sinus bradycardia BPH (benign prostatic hyperplasia) Palpitations Acute dyspnea Hypertension Hypercholesteremia Surgical History History of esophagogastroduodenoscopy (EGD) History of cholecystectomy Social History Alcohol intake: current Comment: counts correct Patient Tobacco Use Status: Never used Tobacco Current occupational status: disabled Current occupation: rt hand Review of Systems Const Denies weight gain and Denies weight loss ENT Reports no additional complaints, Denies dysphagia and Denies odynophagia Card Reports no additional complaints Resp Reports no additional complaints GI Denies abdominal pain, Denies belching, Denies melena, Denies bloating, Denies change in bowel habits, Denies dysphagia, Denies excessive flatus, Denies dyspepsia, Denies heartburn, Denies diarrhea, Denies loose stools, Denies nausea, Denies odynophagia and Denies vomiting Reports no additional complaints Musc Reports no additional complaints Neuro Reports no additional complaints Psych Reports no additional complaints Endo Reports no additional complaints Physical Exam Vital Signs: Last Vital Signs Pulse 58 03/24/24 13:23 BP 137/71 03/24/24 13:23 BMI result Body Mass Index 35.2 Const General: healthy appearing, no acute distress and well developed Nutritional Appearance: well nourished Orientation/consciousness: patient oriented x3 Resp Effort & Inspection: normal respiratory effort, able to speak in complete sentences, no tracheal deviation and symmetric chest movement Auscultation: clear to auscultation bilaterally Cardio Rate: regular rate GI Inspection: Yes normal to inspection, No distended and Yes obesity Palpation (GI): Soft to palpation, not firm, nontender and No hepatosplenomegaly present Auscultation: normal bowel sounds General: Yes no CVA tenderness Back/Spine/Pelvis Back: no CVA tenderness Skin General skin exam: elasticity normal, turgor normal and dry skin Neuro General: patient oriented x3 Psych Appearance: grossly normal Mental Status: mental status grossly normal Judgement: Good judgement present (Psych) Assessment & Plan Assessment & Plan (1) Screen for colon cancer: Code(s): Z12.11 - Encounter for screening for malignant neoplasm of colon Plan Patient denies any GI, cardiac or respiratory symptoms.? Denies any issues with anesthesia in the past.? Denies any history of sleep apnea.? No history infectious diseases in the past or present.? Not on any anticoagulation therapy.? No family or personal history of colon cancer or polyps.? Patient denies melena, hematochezia, unintentional weight loss or ribbon like stools.? Discussed at length the pre-procedure,? prep, diet & medications as well as what to expect prior, during and after the procedure.?? Stressed the importance of good bowel prep.? Recommended the use of Vaseline or Calmoseptine OTC & baby wipes with bowel movements to promote comfort.? ?Patient verbalizes understanding and agrees to plan of care.? He was given the opportunity to ask questions and all questions answered.? We will see him after the procedure.? Medications: New polyethylene glycol 3350 (Miralax) As directed by gastroenterology department at [facility] 238 grams PO ONCE 238 grams 0RF Z12.11 - Encounter for screening for malignant neoplasm of colon bisacodyl (Dulcolax (bisacodyl)) Start taking 2 tablet every night 7 days before the procedure and 1 day before procedure take 4 tablets at noon time followed by MiraLax prep 10 mg (2 x 5 mg) PO BEDTIME 16 tabs 0RF Z12.11 - Encounter for screening for malignant neoplasm of colon Coding Level of Care Code Est Pt Level 3 (94145) Diagnoses Screen for colon cancer Z12.11 Time Spent (min) 30 Comment 20 minutes spent with patient and additional 10 minutes spent reviewing his records
[2024-03-24 13:23] VITALS: BP 137/71; PULSE 58; BMI 35.2
== END 2024-03-24 13:58 | disposition home or self-care (01) ==
LOC: HO.HGI 13:13
PROVIDERS: PCP Internal Medicine; Visit Provider Nurse Practitioner Family
DX: Z01.818 Encounter for other preprocedural examination (principal); Z12.11 Encounter for screening for malignant neoplasm of colon
CPT/HCPCS: 99024

== ENCOUNTER → 2024-03-24 13:13 | Outpatient (BNVA) | payer OTHER, SELFPAY | PROVIDERS: PCP Internal Medicine; Visit Provider Nurse Practitioner Family | DX: Z01.818 Encounter for other preprocedural examination (principal) | CPT/HCPCS: 99212 ==

== ENCOUNTER 2024-06-06 14:19 | Emergency (ER) | payer OTHER, SELFPAY ==
--- NOTE | ~2024-06-06 | XR_ITS ---
EXAMINATION: XR CHEST CLINICAL INFORMATION: CP/ SOB COMPARISON: Prior chest x-ray July 2023 TECHNIQUE: 2 views of the chest were obtained. FINDINGS: No significant abnormality is noted involving the heart, lungs, mediastinum, bony thorax or soft tissues. XR/XR chest 2V IMPRESSION: Unremarkable examination. Electronically signed by: Too Laird MD 06/06/2024 03:04 PM [facility] [place]
--- NOTE | 2024-06-06 14:26 | ECG_ITS ---
Test Reason : CP Blood Pressure : / mmHG Vent. Rate : 048 BPM Atrial Rate : 048 BPM P-R Int : 164 ms QRS Dur : 102 ms QT Int : 448 ms P-R-T Axes : 027 009 015 degrees QTc Int : 400 ms Sinus bradycardia Otherwise normal ECG When compared with ECG of 15-NOV-2014 20:55, QT has shortened Referred By: Sathish Johnson Electronically Signed By:ADRIANA PAGAN
[2024-06-06 14:34] VITALS: BP 145/76; PULSE 53; RESP 18; TEMP 36.3; O2SAT 98; BMI 35.6
--- NOTE | 2024-06-06 14:36 | ED_ITS ---
HPI - Chest Pain General Chief Complaint: Chest Pain Stated Complaint: Chest pain Time Seen by Provider: 06/06/24 18:24 History of Present Illness HPI narrative: see additional note from doctor pauly 06/06/2024 Related Data Home Medications ?Medication ?Instructions ?Recorded ?Confirmed simvastatin 40 mg tablet 40 mg PO BEDTIME 04/02/22 08/01/22 tamsulosin 0.4 mg capsule (Flomax) 0.4 mg PO BEDTIME 04/02/22 08/01/22 hydrochlorothiazide 25 mg tablet 25 mg PO DAILY 08/19/23 amlodipine 10 mg tablet 10 mg PO DAILY 03/24/24 gabapentin 300 mg capsule 300 mg PO TID 03/24/24 nortriptyline 75 mg capsule mg PO 03/24/24 trazodone 150 mg tablet 150 mg PO BEDTIME 03/24/24 Previous Rx's ?Medication ?Instructions ?Recorded bisacodyl 5 mg tablet,delayed 10 mg (2 x 5 mg) PO BEDTIME #16 03/24/24 release (Dulcolax (bisacodyl)) tabs polyethylene glycol 3350 17 238 g PO ONCE #238 grams 03/24/24 gram/dose oral powder (Miralax) Allergies Allergy/AdvReac Type Severity Reaction Status Date / Time No Known Allergies Allergy Mild NKA Verified 06/06/24 14:38 PMFSH Past Medical History Medical History Dorsalgia Sinus bradycardia BPH (benign prostatic hyperplasia) Palpitations Acute dyspnea Hypertension Hypercholesteremia Surgical History History of esophagogastroduodenoscopy (EGD) History of cholecystectomy Social History Social History Alcohol intake: current Comment: counts correct Patient Tobacco Use Status: Never used Tobacco Advance Directives: No Advance Directives Information Provided: Yes Do you have a plan to hurt others: No Plan Current occupational status: disabled Current occupation: rt hand Physical Exam 2 Vital Signs: Vital Signs: Last Vital Signs Temp 97.3 F 06/06/24 14:34 Pulse 58 06/06/24 17:57 Resp 18 06/06/24 14:34 BP 133/75 06/06/24 17:57 Pulse Ox 98 06/06/24 14:34 O2 Del Method Room Air 06/06/24 14:34 BMI result Body Mass Index 35.6 Course Course Course Narrative: This is an RME performed by Adrián Al CNP: Additional HPI, ROS, PE not included below will be deferred to primary provider. patient is a 69-year-old male presents emergency department for evaluation of heart pain pointing to the left lower anterior chest. Onset at approximately 03:00 this morning with varying intensity throughout the day. Pain was ultimately to intense that he had to leave [facility] due to the pain. He currently describes it as a pressure and like a ball in his chest. Has associated shortness of breath, headache, dizziness. Denies associated nausea or vomiting. Initial EKG revealing sinus bradycardia with ventricular rate of 48 Plan: Serum labs, CXR Medications Administered Discontinued Medications Generic Name Dose Route Start Last Admin Trade Name Freq PRN Reason Stop Dose Admin Aspirin 162 mg 06/06/24 18:53 06/06/24 18:59 Aspirin Enteric Coated 81 Mg Tablet.Dr PO 06/06/24 18:54 162 mg ONCE ONE Administration Medical Decision Making Lab Data 06/06/24 14:47 06/06/24 14:47 Labs: Lab Results 06/06/24 06/06/24 06/06/24 Range/Units 14:47 16:53 19:00 WBC 6.5 (4.8-10.8) X10*3/uL RBC 4.92 (4.60-5.80) X10*6/uL Hgb 14.1 (14.0-18.0) g/dl Hct 42.8 (42.0-52.0) % MCV 87.0 (80.0-98.0) fL MCH 28.7 (27.0-33.0) pg MCHC 32.9 (31.0-36.0) g/dl RDW 12.7 (11.0-16.0) % Plt Count 212 (160-400) X10*3/uL MPV 9.8 (9.4-12.4) fL Immature Gran % (Auto) 0.3 (0.0-0.4) % Neut % (Auto) 49.5 (45-73) % Lymph % (Auto) 39.3 (20-40) % [place] % (Auto) 9.0 (2-11) % Eos % (Auto) 1.4 (0-4) % Baso % (Auto) 0.5 (0-2) % Lymph # (Auto) 2.5 (1.2-4.9) X10*3/uL [place] # (Auto) 0.6 (0.1-1.2) X10*3/uL Eos # (Auto) 0.1 (0.0-0.4) X10*3/uL Baso # (Auto) 0.0 (0.0-0.2) X10*3/uL Abs Immat Gran (auto) 0.02 (0.00-0.03) X10*3/uL Absolute Neuts (auto) 3.2 (2.0-8.3) x10*3/uL Absolute Nucleated RBC 0.000 (0.0-0.012) X10*3/uL Nucleated RBC % (auto) 0.0 (0.0-0.2) /100WBC PT 11.5 (10.9-12.4) SEC INR 1.0 (0.9-1.1) Sodium 142 (135-145) mmol/L Potassium 4.6 (3.3-5.1) mmol/L Chloride 108 (96-108) mmol/L Carbon Dioxide 29 (22-29) mmol/L Anion Gap 10 L (12-20) BUN 15 (9-16) mg/dL Creatinine 1.10 (0.5-1.4) mg/dL Estim Creat Clear Calc 76.9 Estimated GFR > 60 Random Glucose 110 (60-115) mg/dL Calcium 9.9 (8.4-10.2) mg/dL Magnesium 2.2 (1.6-2.6) mg/dL Total Bilirubin 0.5 (0.0-1.0) mg/dL AST 20 (5-37) U/L ALT 23 (0-40) U/L Alkaline Phosphatase 52 (39-117) U/L Troponin I High Sens 5.7 6.2 6.1 (<3.5-35.0) ng/L B-Natriuretic Peptide 48 (<100) pg/mL Total Protein 8.2 H (6.5-8.0) g/dL Albumin 4.5 (3.5-5.0) g/dL Lipase 24 (8-78) U/L Influenza Type A (PCR) NEGATIVE (Negative) Influenza Type B (PCR) NEGATIVE (Negative) RSV RNA Qual (PCR) NEGATIVE (Negative) SARS-CoV-2 RNA (RT-PCR) NEGATIVE (Negative) Discharge Plan Discharge Prescriptions: No Action tamsulosin [Flomax] 0.4 mg capsule 0.4 mg PO BEDTIME simvastatin 40 mg tablet 40 mg PO BEDTIME hydrochlorothiazide 25 mg tablet 25 mg PO DAILY amlodipine 10 mg tablet 10 mg PO DAILY trazodone 150 mg tablet 150 mg PO BEDTIME nortriptyline 75 mg capsule PO gabapentin 300 mg capsule 300 mg PO TID bisacodyl [Dulcolax (bisacodyl)] 5 mg tablet,delayed release (DR/EC) 10 mg PO BEDTIME Qty: 16 0RF Rx Instructions: Start taking 2 tablet every night 7 days before the procedure and 1 day before procedure take 4 tablets at noon time followed by MiraLax prep polyethylene glycol 3350 [Miralax] 17 gram/dose powder 238 g PO ONCE Qty: 238 0RF Rx Instructions: As directed by gastroenterology department at [facility] Print Language: Slovenian
[2024-06-06 14:53] LABS: MANUAL DIFF FLAG NO
[2024-06-06 14:55] LABS: Basophils Percent Auto 0.5 % (0-2); Eosinophils Absolute Auto 0.1 X10*3/uL (0.0-0.4); Eosinophils Percent Auto 1.4 % (0-4); Hematocrit 42.8 % (42.0-52.0); Hemoglobin 14.1 g/dl (14.0-18.0); Imm Gran Abs Auto 0.02 X10*3/uL (0.00-0.03); Imm Gran Pct Auto 0.3 % (0.0-0.4); Lymphocytes Absolute Auto 2.5 X10*3/uL (1.2-4.9); Lymphocytes Percent Auto 39.3 % (20-40); Mean Corpuscular HGB Conc 32.9 g/dl (31.0-36.0); Mean Corpuscular Hemoglobin 28.7 pg (27.0-33.0); Mean Platelet Volume 9.8 fL (9.4-12.4); Monocytes Absolute Auto 0.6 X10*3/uL (0.1-1.2); Neutrophils Absolute Auto 3.2 x10*3/uL (2.0-8.3); Neutrophils Percent Auto 49.5 % (45-73); Platelet Count 212 X10*3/uL (160-400); Red Blood Count 4.92 X10*6/uL (4.60-5.80); Red Cell Distribution Width 12.7 % (11.0-16.0); White Blood Count 6.5 X10*3/uL (4.8-10.8)
[2024-06-06 15:00] LABS: Prothrombin Time 11.5 SEC (10.9-12.4)
[2024-06-06 15:11] LABS: Alanine Aminotransferase 23 U/L (0-40); Albumin Level 4.5 g/dL (3.5-5.0); Alkaline Phosphatase 52 U/L (39-117); Anion Gap 10 (12-20); Aspartate Amino Transferase 20 U/L (5-37); Bilirubin Total 0.5 mg/dL (0.0-1.0); Blood Urea Nitrogen 15 mg/dL (9-16); Calcium 9.9 mg/dL (8.4-10.2); Carbon Dioxide 29 mmol/L (22-29); Chloride 108 mmol/L (96-108); Creatinine Clr Calc Pharmacy 76.9; Estimated Glomerular Filt Rate > 60; Glucose Random 110 mg/dL (60-115); Lipase 24 U/L (8-78); Magnesium 2.2 mg/dL (1.6-2.6); Potassium 4.6 mmol/L (3.3-5.1); Sodium 142 mmol/L (135-145); Total Protein 8.2 g/dL (6.5-8.0)
[2024-06-06 15:16] LABS: B Type Natriuretic Peptide 48 pg/mL (<100)
[2024-06-06 15:19] LABS: Troponin-I High Sensitivity 5.7 ng/L (<3.5-35.0)
[2024-06-06 15:29] LABS: Influenza A PCR NEGATIVE (Negative); Influenza B PCR NEGATIVE (Negative); Resp Syncy Virus RNA Qual PCR NEGATIVE (Negative); SARS COV2 PCR INHOUSE NEGATIVE (Negative)
[2024-06-06 17:24] LABS: Troponin-I High Sensitivity 6.2 ng/L (<3.5-35.0)
[2024-06-06 17:51] VITALS: BP 121/64; PULSE 49
[2024-06-06 17:54] VITALS: BP 129/70; PULSE 52
[2024-06-06 17:57] VITALS: BP 133/75; PULSE 58
--- NOTE | 2024-06-06 18:01 | MHC.EDTECH ---
at this time this tech performed a set of orthostatic vital signs on the pt. from laying, sitting, and standing positions. VS appeared relatively stable between each position change and pt only reported slight dizziness when going into a supine position at the beginning of the procedure. Pt reported no other dizziness during position change form laying to sitting, and sitting to standing.
--- NOTE | 2024-06-06 18:58 | ED_ITS ---
HPI - Chest Pain General Chief Complaint: Chest Pain Stated Complaint: Chest pain Time Seen by Provider: 06/06/24 18:24 Source: patient Mode of arrival: ambulatory Limitations: no limitations History of Present Illness ED Provider: HPI narrative: Patient's history of hypertension no known coronary artery disease was awake at 03:00 when noticed some left-sided chest pain which lasted for about 15 minutes associated with cold sweats slight discomfort in left shoulder no shortness a breath no nausea no vomiting patient has slept after that woke up at 09:00 o'clock was feeling fine went to the jew at 13:00 noticed pain again this time pain lasted for an hour relieved after he came to the ER pain was constricting feeling patient does have acid reflux but this pain was different than before never had similar pain patient does not take any aspirin Related Data Home Medications ?Medication ?Instructions ?Recorded ?Confirmed simvastatin 40 mg tablet 40 mg PO BEDTIME 04/02/22 08/01/22 tamsulosin 0.4 mg capsule (Flomax) 0.4 mg PO BEDTIME 04/02/22 08/01/22 hydrochlorothiazide 25 mg tablet 25 mg PO DAILY 08/19/23 amlodipine 10 mg tablet 10 mg PO DAILY 03/24/24 gabapentin 300 mg capsule 300 mg PO TID 03/24/24 nortriptyline 75 mg capsule mg PO 03/24/24 trazodone 150 mg tablet 150 mg PO BEDTIME 03/24/24 Previous Rx's ?Medication ?Instructions ?Recorded bisacodyl 5 mg tablet,delayed 10 mg (2 x 5 mg) PO BEDTIME #16 03/24/24 release (Dulcolax (bisacodyl)) tabs polyethylene glycol 3350 17 238 g PO ONCE #238 grams 03/24/24 gram/dose oral powder (Miralax) aspirin 81 mg chewable tablet 81 mg PO DAILY #30 tabs 06/06/24 Allergies Allergy/AdvReac Type Severity Reaction Status Date / Time No Known Allergies Allergy Mild NKA Verified 06/06/24 14:38 Review of Systems 2 Review of Systems: Yes all other systems are reviewed and are negative PMF Past Medical History Medical History Dorsalgia Sinus bradycardia BPH (benign prostatic hyperplasia) Palpitations Acute dyspnea Hypertension Hypercholesteremia Surgical History History of esophagogastroduodenoscopy (EGD) History of cholecystectomy Social History Social History Alcohol intake: current Comment: counts correct Patient Tobacco Use Status: Never used Tobacco Advance Directives: No Advance Directives Information Provided: Yes Do you have a plan to hurt others: No Plan Current occupational status: disabled Current occupation: rt hand Physical Exam 2 Vital Signs: Vital Signs: Last Vital Signs Temp 98.3 F 06/06/24 20:27 Pulse 51 06/06/24 20:27 Resp 16 06/06/24 20:27 BP 143/77 H 06/06/24 20:27 Pulse Ox 97 06/06/24 20:27 O2 Del Method Room Air 06/06/24 20:27 BMI result Body Mass Index 35.6 Appearance: Alert. Oriented X3. No acute distress. Eyes: No pallor or icterus ENT: Pharynx normal. Oral Mucosa moist Neck: Normal inspection. Neck supple. CVS: Normal heart rate and rhythm. Pulses normal. Respiratory: No respiratory distress. Equal air entry bilateral, no wheezing/rales/rhonchi Abdomen: Soft and nontender. Bowel sounds are present, no mass palpable, no CVA tenderness Skin: Skin warm and dry. Normal skin color. Normal skin turgor. Extremities: No lower extremity edema. No calf tenderness Neuro: Oriented X 3. No motor deficit. Medications Administered Discontinued Medications Generic Name Dose Route Start Last Admin Trade Name Freq PRN Reason Stop Dose Admin Aspirin 162 mg 06/06/24 18:53 06/06/24 18:59 Aspirin Enteric Coated 81 Mg Tablet.Dr PO 06/06/24 18:54 162 mg ONCE ONE Administration Medical Decision Making Medical Decision Making [facility] Narrative: Patient with left-sided chest pain with no prior history of coronary artery disease with history of hypertension and hyperlipidemia EKG without any ischemic changes patient had 2 sets of cardiac enzymes which were negative will order another cardiac enzymes which was also negative patient advised to follow up with PCP/audit tech for further evaluation including stress test and meanwhile continue baby aspirin Differential Diagnosis Differential Diagnoses: The differential diagnosis associated with the presentation includes ACS/pericarditis/pneumonitis/non-STEMI Lab Data [facility] Lab Attestation statement: I reviewed the patient's lab results. 06/06/24 14:47 06/06/24 14:47 Labs: Lab Results 06/06/24 06/06/24 06/06/24 Range/Units 14:47 16:53 19:00 WBC 6.5 (4.8-10.8) X10*3/uL RBC 4.92 (4.60-5.80) X10*6/uL Hgb 14.1 (14.0-18.0) g/dl Hct 42.8 (42.0-52.0) % MCV 87.0 (80.0-98.0) fL MCH 28.7 (27.0-33.0) pg MCHC 32.9 (31.0-36.0) g/dl RDW 12.7 (11.0-16.0) % Plt Count 212 (160-400) X10*3/uL MPV 9.8 (9.4-12.4) fL Immature Gran % (Auto) 0.3 (0.0-0.4) % Neut % (Auto) 49.5 (45-73) % Lymph % (Auto) 39.3 (20-40) % [place] % (Auto) 9.0 (2-11) % Eos % (Auto) 1.4 (0-4) % Baso % (Auto) 0.5 (0-2) % Lymph # (Auto) 2.5 (1.2-4.9) X10*3/uL [place] # (Auto) 0.6 (0.1-1.2) X10*3/uL Eos # (Auto) 0.1 (0.0-0.4) X10*3/uL Baso # (Auto) 0.0 (0.0-0.2) X10*3/uL Abs Immat Gran (auto) 0.02 (0.00-0.03) X10*3/uL Absolute Neuts (auto) 3.2 (2.0-8.3) x10*3/uL Absolute Nucleated RBC 0.000 (0.0-0.012) X10*3/uL Nucleated RBC % (auto) 0.0 (0.0-0.2) /100WBC PT 11.5 (10.9-12.4) SEC INR 1.0 (0.9-1.1) Sodium 142 (135-145) mmol/L Potassium 4.6 (3.3-5.1) mmol/L Chloride 108 (96-108) mmol/L Carbon Dioxide 29 (22-29) mmol/L Anion Gap 10 L (12-20) BUN 15 (9-16) mg/dL Creatinine 1.10 (0.5-1.4) mg/dL Estim Creat Clear Calc 76.9 Estimated GFR > 60 Random Glucose 110 (60-115) mg/dL Calcium 9.9 (8.4-10.2) mg/dL Magnesium 2.2 (1.6-2.6) mg/dL Total Bilirubin 0.5 (0.0-1.0) mg/dL AST 20 (5-37) U/L ALT 23 (0-40) U/L Alkaline Phosphatase 52 (39-117) U/L Troponin I High Sens 5.7 6.2 6.1 (<3.5-35.0) ng/L B-Natriuretic Peptide 48 (<100) pg/mL Total Protein 8.2 H (6.5-8.0) g/dL Albumin 4.5 (3.5-5.0) g/dL Lipase 24 (8-78) U/L Influenza Type A (PCR) NEGATIVE (Negative) Influenza Type B (PCR) NEGATIVE (Negative) RSV RNA Qual (PCR) NEGATIVE (Negative) SARS-CoV-2 RNA (RT-PCR) NEGATIVE (Negative) Independent Interpretation I performed an independent interpretation of an: EKG Interpretation: Sinus bradycardia with heart rate 48 beats per minute normal interval normal axis no acute STT wave changes no acute ischemia Discharge Plan Discharge Clinical Impression: Chest pain Patient Disposition: Home, Self-Care Instructions: Chest Pain (ED) Additional Instructions: At this time there is no evidence of heart damage Take baby aspirin daily You need to see primary care doctor/audit tech for further evaluation for the chest pain Prescriptions: New aspirin 81 mg tablet,chewable 81 mg PO DAILY Qty: 30 0RF No Action tamsulosin [Flomax] 0.4 mg capsule 0.4 mg PO BEDTIME simvastatin 40 mg tablet 40 mg PO BEDTIME hydrochlorothiazide 25 mg tablet 25 mg PO DAILY amlodipine 10 mg tablet 10 mg PO DAILY trazodone 150 mg tablet 150 mg PO BEDTIME nortriptyline 75 mg capsule PO gabapentin 300 mg capsule 300 mg PO TID bisacodyl [Dulcolax (bisacodyl)] 5 mg tablet,delayed release (DR/EC) 10 mg PO BEDTIME Qty: 16 0RF Rx Instructions: Start taking 2 tablet every night 7 days before the procedure and 1 day before procedure take 4 tablets at noon time followed by MiraLax prep polyethylene glycol 3350 [Miralax] 17 gram/dose powder 238 g PO ONCE Qty: 238 0RF Rx Instructions: As directed by gastroenterology department at [facility] Referrals: Familia Kelly MD [Physician] - 1 week Interventions: ED Discharge Assessment Last Done: 06/06/24 20:27 Discharge Date/Time: 06/06/24 20:28 Print Language: Croatian
[2024-06-06] MEDS: Aspirin Enteric Coated 81 MG TABLET.DR 162 MG PO (18:59)
[2024-06-06 19:49] LABS: Troponin-I High Sensitivity 6.1 ng/L (<3.5-35.0)
[2024-06-06 20:27] VITALS: BP 143/77; PULSE 51; RESP 16; TEMP 36.8; O2SAT 97
== END 2024-06-06 20:28 | disposition home or self-care (01) ==
PROVIDERS: Nurse Practitioner Family; Emergency Provider Internal Medicine; PCP Internal Medicine
DX: R07.89 Other chest pain (principal); R06.02 Shortness of breath; I25.10 Atherosclerotic heart disease of native coronary artery without angina pectoris; R00.1 Bradycardia, unspecified; Z79.899 Other long term (current) drug therapy; Z03.818 Encounter for observation for suspected exposure to other biological agents ruled out
CPT/HCPCS: 0241U; 36415; 71046; 80053; 83690; 83735; 83880; 84484; 85025; 85610; 93005; 99284

== ENCOUNTER → 2024-06-06 14:26 | Outpatient (BNV) | payer OTHER, SELFPAY | PROVIDERS: Emergency Provider Internal Medicine; PCP Internal Medicine; Visit Provider Internal Medicine | DX: R00.1 Bradycardia, unspecified (principal) | CPT/HCPCS: 93010 ==

== ENCOUNTER 2024-09-15 08:08 | Day surgery (SDC) | payer OTHER, SELFPAY ==
--- NOTE | 2024-07-26 13:25 | HO.ANESPROP2 ---
Documented by User: Kacey Mackey NP 08/05/24 14:25 HPI - Anesthesia Eval Consult details Narrative: 69yo M for Colonoscopy, 09/15/24 [facility] 06/06/24 with chest pain. Medical Decision Making [facility] Narrative: Patient with left-sided chest pain with no prior history of coronary artery disease with history of hypertension and hyperlipidemia EKG without any ischemic changes patient had 2 sets of cardiac enzymes which were negative will order another cardiac enzymes which was also negative patient advised to follow up with PCP/meeting planner for further evaluation including stress test and meanwhile continue baby aspirin Case reviewed with Dr Mary SALAZAR Active Problems Active Problems: All Active Problems Foreign body of right index finger (Acute) Past Medical History Medical History Dorsalgia BPH (benign prostatic hyperplasia) Palpitations Hypertension Hypercholesteremia Surgical History Surgical History Hx of excision of mass History of esophagogastroduodenoscopy (EGD) History of cholecystectomy Social History Social History Household Members Other:: lives alone Are you a primary assisted living care manager to a significant other at home: No Do you presently have visiting nurse or other home services: No Alcohol intake: current Comment: counts correct Patient Tobacco Use Status: Never used Tobacco Use of substances other than those prescribed or required for medical reasons: No Have you been hit, kicked, punched, or otherwise hurt by someone within the past year? If so, by whom?: No Are you DNR?: No Advance Directives: No Advance Directives Information Provided: Yes Recently lost weight without trying: No Nutrition Risks: No Nutritional Risk Poor oral hygiene: No Current occupational status: disabled Current occupation: rt hand Meds Allergies Allergy/AdvReac Type Severity Reaction Status Date / Time No Known Allergies Allergy Mild NKA Verified 06/06/24 14:38 Home Medications ?Medication ?Instructions ?Recorded ?Confirmed ?Last Taken ?Type simvastatin 40 mg tablet 40 mg PO BEDTIME 04/02/22 07/23/24 Unknown History tamsulosin 0.4 mg capsule (Flomax) 0.4 mg PO BEDTIME 04/02/22 08/01/22 Unknown History hydrochlorothiazide 25 mg tablet 25 mg PO DAILY 08/19/23 07/23/24 Unknown History amlodipine 10 mg tablet 10 mg PO DAILY 03/24/24 07/23/24 Unknown History gabapentin 300 mg capsule 300 mg PO TID 03/24/24 07/23/24 Unknown History nortriptyline 75 mg capsule 150 mg PO BEDTIME 03/24/24 07/23/24 Unknown History trazodone 150 mg tablet 150 mg PO BEDTIME 03/24/24 Unknown History Exam Pertinent Lab Results Pertinent Lab Results: Laboratory Tests 06/06/24 14:47 WBC 6.5 Hgb 14.1 Hct 42.8 Plt Count 212 Sodium 142 Potassium 4.6 Chloride 108 Carbon Dioxide 29 BUN 15 Creatinine 1.10 Narrative Narrative: EKG 05/2024 Vent. Rate : 048 BPM Atrial Rate : 048 BPM P-R Int : 164 ms QRS Dur : 102 ms QT Int : 448 ms P-R-T Axes : 027 009 015 degrees QTc Int : 400 ms Sinus bradycardia Otherwise normal ECG When compared with ECG of 15-NOV-2014 20:55, QT has shortened Assessment and Plan Assessment Anesthesia Assessment: Chart Reviewed Documented by User: Lay Guevara MD 09/15/24 10:04 [facility] Past Medical History Medical History Dorsalgia BPH (benign prostatic hyperplasia) Palpitations Hypertension Hypercholesteremia Family History Family history of problems with anesthesia: No Surgical History Surgical History Hx of excision of mass History of esophagogastroduodenoscopy (EGD) History of cholecystectomy History of Problems with Anesthesia: No Social History Social History Household Members Other:: lives alone Are you a primary assisted living care manager to a significant other at home: No Do you presently have visiting nurse or other home services: No Alcohol intake: current Comment: counts correct Patient Tobacco Use Status: Never used Tobacco Use of substances other than those prescribed or required for medical reasons: No Have you been hit, kicked, punched, or otherwise hurt by someone within the past year? If so, by whom?: No Are you DNR?: No Advance Directives: No Advance Directives Information Provided: Yes Recently lost weight without trying: No Nutrition Risks: No Nutritional Risk Poor oral hygiene: No Current occupational status: disabled Current occupation: rt hand Meds Allergies Allergy/AdvReac Type Severity Reaction Status Date / Time No Known Allergies Allergy Mild NKA Verified 06/06/24 14:38 Home Medications ?Medication ?Instructions ?Recorded ?Confirmed ?Last Taken ?Type simvastatin 40 mg tablet 40 mg PO BEDTIME 04/02/22 07/23/24 Unknown History tamsulosin 0.4 mg capsule (Flomax) 0.4 mg PO BEDTIME 04/02/22 08/01/22 Unknown History hydrochlorothiazide 25 mg tablet 25 mg PO DAILY 08/19/23 07/23/24 Unknown History amlodipine 10 mg tablet 10 mg PO DAILY 03/24/24 07/23/24 Unknown History gabapentin 300 mg capsule 300 mg PO TID 03/24/24 07/23/24 Unknown History nortriptyline 75 mg capsule 150 mg PO BEDTIME 03/24/24 07/23/24 Unknown History trazodone 150 mg tablet 150 mg PO BEDTIME 03/24/24 Unknown History Exam Height,Weight and Vital Signs: Height 5 ft 9 in Weight 105.8 kg Vital Signs Temp Pulse Resp BP Pulse Ox O2 Del Method 09/15/24 09:38 97.2 F 50 16 135/81 97 Room Air Airway Mallampati Class: III TM Dist: >3cm Neck ROM: Full Loose/Missing/Broken Teeth: No Heart: RRR Lungs: CTAB Assessment and Plan Assessment Anesthesia Assessment: Anesthesia Plan Discussed and Chart Reviewed Final Anesthetic Review Family History of Problems with Anesthesia: No History of Problems with Anesthesia: No NPO: Yes ASA Class: III Final Preanesthetic Review: No Changes in Pt Med Stat, Meds/Allgs Chart Reviewed, Consent Obtained/Reviewed and Anes Risks/Benef Reviewed Patient Risk: Intermediate Procedure Risk: Low Assessment/Block/Sedation in SS: Assess/Block/Sedation-SS Anesthetic Plan Anesthetic Plan: TIVA Disposition: Standard PACU
[2024-09-15 09:10] VITALS: BMI 34.4
--- NOTE | 2024-09-15 09:15 | MHC.SHP ---
Pre-Procedural Eval Section A - 24 Hr Update-Section A only Date of Service: 09/15/24 Section B - Complete if H&P > 30 days Chief Complaint: screening Relevant Family History (Specify if Yes): No Relevant Social History: None Present Medications: see Short Stay Collaborative assessment Medical History: Significant History (Dorsalgia BPH (benign prostatic hyperplasia) Palpitations Hypertension Hypercholesteremia) History of Previous Operations: Relevant previous surgery/procedure and date(s) (Hx of excision of mass History of esophagogastroduodenoscopy (EGD) History of cholecystectomy) Allergies: Allergies Allergy/AdvReac Type Severity Reaction Status Date / Time No Known Allergies Allergy Mild NKA Verified 06/06/24 14:38 Review of Systems Sugical H&P ROS: Negative: Constitution, Cardiovascular, Respiratory, Neurological, Psychiatric, Hem-Onc, Allergic/Immunologic, Gastrointestinal, Genitourinary, Musculoskeletal, Integumentary, Endocrine and Eyes/Ears/Nose/Throat Exam Surgical H&P Exam: Normal: HEENT, Normal: Heart, Normal: Lungs, Normal: Extremities, Normal: Abdomen, Normal: Skin and Normal: Neurological Plan Diagnosis/Plan: Unchanged I have reviewed the history and physical and performed a pertinent physical examination on my patient. No changes have occurred unless specified. Time Spent With Patient Time: Total time managing care of this patient today ____ minutes.
[2024-09-15 09:38] VITALS: BP 135/81; PULSE 50; RESP 16; TEMP 36.2; O2SAT 97
[2024-09-15] MEDS: Lactated Ringers 1,000 ML 100 ML IVCONT (09:41)
--- NOTE | 2024-09-15 10:26 | HO.OPN-COLON ---
Colonoscopy Operative Note Operative Note Date of Service: 09/15/24 Narrative: Operative Information Procedure Description: Colonoscopy Indication: screening Anesthesia: MAC COLONOSCOPY Instrument: Olympus variable stiffness pediatric scope 190L Colonoscopy Monitoring: Vital signs and clinical assessment, continuous EKG monitoring, Pulse oximetry, Carbon Dioxide monitoring and blood pressure monitoring were done throughout the procedure. Colon withdrawal time was 10 minutes. Procedure: The patient was placed in the left lateral decubitis position and pre-procedure medications were administered. After a digital rectal examination of the ano-rectum, the video colonoscope was inserted into the rectum and advanced through the colon to the cecum/TI. The colonoscope was slowly withdrawn in a retrograde panoramic fashion and the colon mucosa was carefully examined including a retroflexed view of the rectum. Findings and interventions are described below. Procedure Difficulty: easy Findings: Terminal Ileum-normal Cecum: 5-6 mm sessile polyp removed with cold snare Right sided retroflexion- normal Ascending Colon: normal Transverse Colon -normal Descending Colon: 3-4 mm sessile polyp removed with cold forceps Sigmoid Colon: normal Rectum: Retroflexion with small internal hemorrhoids seen, grade I Anorectum - normal Intervention: cold snare, cold forceps Colon preparation: [place] Bowel Preparation Scale Right colon; 2 Transverse colon: 2 Left colon; 2 (0 = Unprepared colon segment with mucosa not seen due to solid stool that cannot be cleared. 1 = Portion of mucosa of the colon segment seen, but other areas of the colon segment not well seen due to staining, residual stool and/or opaque liquid. 2 = Minor amount of residual staining, small fragments of stool and/or opaque liquid, but mucosa of colon segment seen well. 3 = Entire mucosa of colon segment seen well with no residual staining, small fragments of stool or opaque liquid) Impression and Post Procedure Diagnosis: colon polyps internal hemorrhoids Plan: High fiber diet leaflet Avoid straining at stool, epsom salts and sitz bath, anusol supps or cream Repeat Colonoscopy in 5-6 years due to adenomatous appearing polyps or earlier if clinically indicated Above findings were reviewed with the patient and relevant handouts were provided if indicated.
[2024-09-15 10:32] VITALS: BP 121/74; PULSE 57; RESP 21; TEMP 36.4; O2SAT 95
[2024-09-15 10:51] VITALS: BP 131/71; PULSE 43; RESP 16; TEMP 36.4; O2SAT 96
== END 2024-09-15 11:12 | disposition home or self-care (01) ==
PROVIDERS: PCP Internal Medicine; Visit Provider Internal Medicine Gastroenterology
PROC: 0DJD8ZZ Inspection of Lower Intestinal Tract, Via Natural or Artificial Opening Endoscopic (ICD-10-PCS; CPT 45378; principal; 2024-09-15 10:20)
DX: Z12.11 Encounter for screening for malignant neoplasm of colon (principal); D12.0 Benign neoplasm of cecum; D12.4 Benign neoplasm of descending colon; K64.0 First degree hemorrhoids; N40.0 Benign prostatic hyperplasia without lower urinary tract symptoms; I10 Essential (primary) hypertension; E78.00 Pure hypercholesterolemia, unspecified; R00.1 Bradycardia, unspecified; R06.00 Dyspnea, unspecified; M54.9 Dorsalgia, unspecified; Z90.49 Acquired absence of other specified parts of digestive tract; Z79.82 Long term (current) use of aspirin; Z79.899 Other long term (current) drug therapy; Z98.890 Other specified postprocedural states
CPT/HCPCS: 45385; 45380; 88305; J1596; J2003; J2704

== ENCOUNTER → 2024-09-15 08:08 | Outpatient (BNV) | payer OTHER, SELFPAY | PROVIDERS: PCP Internal Medicine; Visit Provider Internal Medicine Gastroenterology | DX: Z12.11 Encounter for screening for malignant neoplasm of colon (principal); D12.0 Benign neoplasm of cecum; D12.4 Benign neoplasm of descending colon; K64.0 First degree hemorrhoids | CPT/HCPCS: 45380; 45385 ==

== ENCOUNTER 2024-09-17 12:14 | Emergency (ER) | payer OTHER, SELFPAY ==
--- NOTE | ~2024-09-17 | XR_ITS ---
EXAMINATION: XR HIP, LEFT CLINICAL INFORMATION: fall, pain COMPARISON: None available. TECHNIQUE: Two views of the left hip. FINDINGS: No acute cortical disruption or malalignment in the left coxofemoral joint. The bony pelvis is intact. Degenerative changes in the symphysis joints.. XR/XR hip LT w PEL1V IMPRESSION: No acute fracture or dislocation, left hip. Negative exam. Electronically signed by: Yvan Orr MD 09/17/2024 02:29 PM EDT
--- NOTE | ~2024-09-17 | XR_ITS ---
EXAMINATION: XR LUMBOSACRAL SPINE CLINICAL INFORMATION: fall, pain L side COMPARISON: September 07, 2018. TECHNIQUE: Three views of the lumbosacral spine. FINDINGS: Multilevel endplate sclerosis and marginal osteophyte formation with decreased volume of the vertebral bodies in the axial skeleton. No acute cortical disruption or malalignment. No lytic or blastic lesions. XR/XR lumbar spine 2-3V IMPRESSION: Mild multilevel spondylosis without acute fracture or gross listhesis. Electronically signed by: Yvan Orr MD 09/17/2024 02:27 PM EDT
--- NOTE | ~2024-09-17 | CT_ITS ---
EXAMINATION: CT LUMBAR SPINE WITHOUT CONTRAST CLINICAL INFORMATION: Fall with midline pain. COMPARISON: Plain films dated earlier same day. CT lumbar 04/07/2018. TECHNIQUE: Spiral CT imaging of the lumbar spine performed in axial plane without contrast. Multiplanar reformatted images were constructed from the axial data set. This CT examination was performed using dose optimization techniques as appropriate, variously including the following: *Automated exposure control *Adjustment of mA and/or kV according to patient size (this includes techniques or standardized protocols for targeted exams where dose is matched to indication/reason for exam; i.e. extremities or head) *Use of iterative reconstruction technique FINDINGS: There is a mild levoconvex scoliosis, apex at L2-3. There is a normal lordosis. There is no fracture, compression deformity, subluxation, or suspicious bone lesion evident. Normal alignment. Mild disc degeneration present at L1-2 and L2-3. Discs otherwise preserved. Normal facet alignment. Minimal degenerative facet changes present at L3-S1. No large disc herniation or central canal stenosis evident. The transverse and spinous processes are intact. The sacrum is intact. There are mild degenerative SI joint changes. The imaged retroperitoneal and paravertebral soft tissues are normal. CT/CT lumbar spine wo IV con IMPRESSION: 1. There is no acute bony abnormality. There is no fracture or compression deformity. 2. There are mild degenerative changes. 3. There is a minimal levoconvex scoliosis. Electronically signed by: Jose Conde MD 09/17/2024 04:38 PM EDT
[2024-09-17 12:29] VITALS: BP 141/64; PULSE 54; RESP 18; TEMP 36.8; O2SAT 97; BMI 34.2
--- NOTE | 2024-09-17 13:52 | ED_ITS ---
HPI - Fall General Chief Complaint: Fall Stated Complaint: fall back inj Time Seen by Provider: 09/17/24 13:51 Source: patient Mode of arrival: ambulatory Limitations: no limitations History of Present Illness ED Provider: Shayy Al NP HPI Narrative: Patient is a 69-year-old male who presents emergency department for evaluation. He reports yesterday evening he was walking down approximately 5 outdoor steps, he was using his cane once walking on the sidewalk he attempted to make a turn towards the right and states that he lost his balance, he subsequently fell backwards attempted to catch himself on bilateral outstretched hands behind him but the left posterior hip/ leg struck into the corner of the last stair. He endorses longstanding pain and issues with his left hip, from a fall many years ago. He denies any associated head strike or loss of consciousness, no use of anticoagulants. His primary concern today is ongoing pain to the left lower back in the left hip as well as the proximal thigh just below the buttock. He has tried Tylenol, a topical cream, ice/ heat without much improvement. Denies Precipitating symptoms such as headache, dizziness, lightheadedness, vision changes, chest pain, shortness of breath, nausea, vomiting, numbness or tingling of the extremity. Denies recent URI symptoms, fevers, chills, cough, abdominal pain, diarrhea, constipation, bladder bowel dysfunction, saddle paresthesias. Related Data Home Medications ?Medication ?Instructions ?Recorded ?Confirmed simvastatin 40 mg tablet 40 mg PO BEDTIME 04/02/22 07/23/24 tamsulosin 0.4 mg capsule (Flomax) 0.4 mg PO BEDTIME 04/02/22 08/01/22 hydrochlorothiazide 25 mg tablet 25 mg PO DAILY 08/19/23 07/23/24 amlodipine 10 mg tablet 10 mg PO DAILY 03/24/24 07/23/24 gabapentin 300 mg capsule 300 mg PO TID 03/24/24 07/23/24 nortriptyline 75 mg capsule 150 mg PO BEDTIME 03/24/24 07/23/24 trazodone 150 mg tablet 150 mg PO BEDTIME 03/24/24 Previous Rx's ?Medication ?Instructions ?Recorded bisacodyl 5 mg tablet,delayed 10 mg (2 x 5 mg) PO BEDTIME #16 03/24/24 release (Dulcolax (bisacodyl)) tabs aspirin 81 mg chewable tablet 81 mg PO DAILY #30 tabs 06/06/24 bisacodyl 5 mg tablet,delayed 20 mg (4 x 5 mg) PO ONCE 1 day #4 07/27/24 release (Dulcolax (bisacodyl)) tabs polyethylene glycol 3350 17 238 g PO ONCE 1 day #238 grams 07/27/24 gram/dose oral powder (Miralax) lidocaine 5 % topical patch 1 patch topical DAILY #15 ea 09/17/24 oxycodone 5 mg tablet 5 mg PO Q6H PRN pain #7 tabs 09/17/24 Allergies Allergy/AdvReac Type Severity Reaction Status Date / Time No Known Allergies Allergy Mild NKA Verified 09/17/24 12:35 Review of Systems Review of Systems: Yes all other systems are reviewed and are negative PMFSH Past Medical History Attestation statement: The following information was validated with the patient. Source: old records reviewed Medical History Dorsalgia BPH (benign prostatic hyperplasia) Palpitations Hypertension Hypercholesteremia Surgical History Hx of excision of mass History of esophagogastroduodenoscopy (EGD) History of cholecystectomy Social History Social History Household Members Other:: lives alone Are you a primary healthcare educator to a significant other at home: No Do you presently have visiting nurse or other home services: No Alcohol intake: current Comment: counts correct Patient Tobacco Use Status: Never used Tobacco Smoked in Last 30 Days: No Use of substances other than those prescribed or required for medical reasons: No Advance Directives: No Advance Directives Information Provided: Yes Current occupational status: disabled Current occupation: rt hand Physical Exam Vital Signs: Vital Signs: Last Vital Signs Temp 97.5 F 09/17/24 16:28 Pulse 45 L 09/17/24 16:28 Resp 16 09/17/24 16:28 BP 150/72 H 09/17/24 16:28 Pulse Ox 96 09/17/24 16:28 O2 Del Method Room Air 09/17/24 16:28 BMI result Body Mass Index 34.2 Appearance: Alert.?Oriented to person, place and time. No acute distress.?Normal affect. Back: No midline thoracic or lumbar spine tenderness, step-offs, deformities. CVS: Heart sounds normal. Normal heart rate and rhythm.? Pulses normal.?? Respiratory: No respiratory distress.? Lung sounds clear to auscultation bilaterally?? Abdomen: Soft and non-tender. Normoactive bowel sounds Skin: Skin warm and dry.? Normal skin color.? Extremities: No lower extremity edema.? No calf ttp. mild decreased AROM to the left hip particularly with flexion otherwise Full range of motion to bilateral upper and right lower extremities. 2+ DP/PT pulse, 2+ radial pulse bilaterally. Neuro: Moves all extremities spontaneously. Sensation intact bilaterally. CN II- XII intact. No focal neuro deficits. Course Reevaluation(s) Reevaluation #1: XR of the left hip pelvis and lumbar spine without evidence of acute fracture dislocation. Patient endorses minimal improvement after Toradol and lidocaine patch. trialed cyclobenzaprine without any improvement either. Given degree of pain, obtain CT of the lumbar spine which is without acute pathology. He received a dose of oxycodone some improvement in pain. Discussed discharge home, outpatient follow-up with PCP, strict return precautions. All questions answered Medications Administered Discontinued Medications Generic Name Dose Route Start Last Admin Trade Name Freq PRN Reason Stop Dose Admin Cyclobenzaprine HCl 10 mg 09/17/24 15:05 09/17/24 15:19 Cyclobenzaprine Hcl 10 Mg Tablet PO 09/17/24 15:06 10 mg ONCE ONE Administration Ketorolac Tromethamine 15 mg 09/17/24 14:01 09/17/24 14:24 Ketorolac Tromethamine 15 Mg/Ml Vial IM 09/17/24 14:02 15 mg ONCE ONE Administration Lidocaine 1 patch 09/17/24 14:01 09/17/24 14:24 Lidocaine 4 % Patch Adh..Patch TRANSDERMA 09/17/24 14:02 1 patch ONCE ONE Administration Protocol Oxycodone HCl 5 mg 09/17/24 16:05 09/17/24 16:25 Oxycodone Hcl Immed Release 5 Mg Tablet PO 09/17/24 16:06 5 mg ONCE ONE Administration Medical Decision Making Medical Decision Making MDM Narrative: patient is a 69-year-old male with past medical history of dorsalgia, BPH, hypertension, hypercholesterolemia who presents emergency department for evaluation of traumatic left lower back/ left hip pain after fall yesterday as per HPI. Differential includes fracture, dislocation, sprain, contusion, lumbar disc herniation with resultant radicular pain. No head strike or loss of consciousness, no use of anticoagulants, low suspicion for ICH, SDH, skull fracture subluxation, at this time would defer head CT imaging is not indicated at this time. Obtaining XR of the lumbar spine and left hip / pelvis. Reviewed with patient, can not completely exclude herniated disc, however on examination there are no concerning neurological findings or symptoms to be concerned for cauda equina that would indicate emergent MRI imaging. Will trial Lidoderm patch in Toradol for pain management at this time. Endorsing fall to be strictly mechanical in nature, no preceding symptoms to suggest alternative cause of fall Differential Diagnosis Differential Diagnoses: The differential diagnosis associated with the presentation includes (See narrative above) Independent Interpretation I performed an independent interpretation of an: Plain X-Ray Radiology Impression Discussion of test interpretation with radiology: I have reviewed the radiologist's reading. Radiologist Impression: XR/XR lumbar spine 2-3V IMPRESSION: Mild multilevel spondylosis without acute fracture or gross listhesis. XR/XR hip LT w PEL1V IMPRESSION: No acute fracture or dislocation, left hip. Negative exam. CT/CT lumbar spine wo IV con IMPRESSION: 1. There is no acute bony abnormality. There is no fracture or compression deformity. 2. There are mild degenerative changes. 3. There is a minimal levoconvex scoliosis. External Record Review External record reviewed: Outpatient record and Other I attest that I have reviewed patients [employer], and at the time prescribing the patient a controlled substance is appropriate based off of patients diagnosis and treatment plan. Prescription Management I considered prescription management with: Pain Medication Chronic Conditions Patient?s care impacted by: Other ( see narrative above) Discharge Plan Discharge Clinical Impression: Lumbar back pain Patient Disposition: Home, Self-Care Instructions: Acute Low Back Pain (ED) Additional Instructions: you were evaluated in the emergency department today following a fall with your leg/ hip striking the stair. X-ray imaging of the left hip pelvis and lower back did not show any acute abnormality. Due to her degree of pain a CT scan of the lower back was obtained as well and is and does not show evidence of any acute fracture, there is however evidence of mild arthritic changes. We can not see on CT imaging are disc herniations, these are sometimes better appreciated on an MRI image. There was no indication while in the emergency department for an emergent MRI to be obtained. A prescription for oxycodone which you were given in the emergency department has been sent to your pharmacy to use only as needed for severe pain unrelieved by Tylenol/Lidoderm patch. I recommend that you contact your primary care doctor's office to arrange for a follow-up visit next week especially if you continue to have persistent pain. You may return to emergency department any new or worsening symptoms or concerns. Prescriptions: New oxycodone 5 mg tablet 5 mg PO Q6H PRN (Reason: pain) Qty: 7 0RF Rx Instructions: Partial Fill upon patient request. lidocaine 5 % adhesive patch,medicated 1 patch topical DAILY Qty: 15 0RF Rx Instructions: leave on most painful area for up to 12 hrs No Action bisacodyl [Dulcolax (bisacodyl)] 5 mg tablet,delayed release (DR/EC) 20 mg PO ONCE 1 Days Qty: 4 0RF Rx Instructions: take at 12pm the day before colonoscopy with plenty of water polyethylene glycol 3350 [Miralax] 17 gram/dose powder 238 g PO ONCE 1 Days Qty: 238 0RF Rx Instructions: THE DAY BEFORE your procedure mix entire bottle with 64 ounces of Gatorade- no red, blue or purple. AT 5PM Start drinking 1 cup every 15minutes until half is gone. Continue drinking plenty of clear liquids. AT 10PM Finish drinking remaining prep. aspirin 81 mg tablet,chewable 81 mg PO DAILY Qty: 30 0RF Rx Instructions: pt has not taken ASA for months tamsulosin [Flomax] 0.4 mg capsule 0.4 mg PO BEDTIME simvastatin 40 mg tablet 40 mg PO BEDTIME hydrochlorothiazide 25 mg tablet 25 mg PO DAILY amlodipine 10 mg tablet 10 mg PO DAILY trazodone 150 mg tablet 150 mg PO BEDTIME nortriptyline 75 mg capsule 150 mg PO BEDTIME gabapentin 300 mg capsule 300 mg PO TID bisacodyl [Dulcolax (bisacodyl)] 5 mg tablet,delayed release (DR/EC) 10 mg PO BEDTIME Qty: 16 0RF Rx Instructions: Start taking 2 tablet every night 7 days before the procedure and 1 day before procedure take 4 tablets at noon time followed by MiraLax prep Referrals: Angela Zamudio MD [Primary Care Provider] - Print Language: Mauritanian
[2024-09-17] MEDS: Lidocaine 4 % Patch ADH..PATCH 1 PATCH TRANSDERMA (14:24)
[2024-09-17] MEDS: Ketorolac Tromethamine 15 MG/ML VIAL IM (14:24)
[2024-09-17] MEDS: Cyclobenzaprine HCl 10 MG TABLET PO (15:19)
[2024-09-17] MEDS: oxyCODONE HCl Immed Release 5 MG TABLET PO (16:25)
[2024-09-17 16:28] VITALS: BP 150/72; PULSE 45; RESP 16; TEMP 36.4; O2SAT 96
[2024-09-17 17:26] VITALS: BP 150/72; PULSE 45; RESP 16; TEMP 36.4; O2SAT 96
== END 2024-09-17 17:27 | disposition home or self-care (01) ==
PROVIDERS: Emergency Provider Emergency Medicine; PCP Internal Medicine
DX: M54.50 Low back pain, unspecified (principal); Z91.81 History of falling; E78.00 Pure hypercholesterolemia, unspecified; I10 Essential (primary) hypertension; Z79.02 Long term (current) use of antithrombotics/antiplatelets; Z79.899 Other long term (current) drug therapy; Z79.82 Long term (current) use of aspirin
CPT/HCPCS: 72100; 72131; 73502; 96372; 99284; J1885

== ENCOUNTER → 2024-09-17 14:00 | Outpatient (BNV) | payer OTHER, SELFPAY | PROVIDERS: Emergency Provider Emergency Medicine; PCP Internal Medicine; Visit Provider Radiology Diagnostic Radiology | DX: M54.9 Dorsalgia, unspecified (principal); M25.552 Pain in left hip; M47.9 Spondylosis, unspecified | CPT/HCPCS: 72100; 72131; 73502 ==

== ENCOUNTER 2024-10-13 11:00 | Outpatient (RCR) | payer OTHER, SELFPAY | END 2024-11-02 15:58 | disposition home or self-care (01) | LOC: HO.PT 11:00 | PROVIDERS: PCP Internal Medicine; Visit Provider Internal Medicine | DX: M54.50 Low back pain, unspecified (principal) | CPT/HCPCS: 97110; 97162 ==